=== PATIENT | female | born 1960 | race Caucasian/White ===

== ENCOUNTER 2018-07-28 16:38 | Emergency (ER) | payer MEDICARE, SELFPAY ==
[2018-07-28 17:04] VITALS: BP 160/100; PULSE 65; RESP 18; TEMP 36.7; O2SAT 97
[2018-07-28 17:13] LABS: Absolute Basophil Count 0.04 k/cumm (0.0-0.2); Absolute Eosinophil Count 0.38 k/cumm (0.0-0.7); Absolute Lymphocyte Count 1.59 k/cumm (1.2-3.4); Absolute Monocyte Count 0.43 k/cumm (0.11-0.7); Absolute Neutrophil Count 2.55 k/cumm (1.2-6.7); Basophils % 0.8; Eosinophils % 7.6; HCT 44.2 % (36.0-46.0); HGB 14.7 g/dL (12.0-15.5); Lymphocytes % 31.9; Mean Corp. HGB Concentration 33.3 g/dL (32.0-36.0); Mean Corpuscular Hemoglobin 28.5 pg (27.0-33.0); Mean Corpuscular Volume 85.8 fL (80-95); Mean Platelet Volume 10.5 fL (8.0-11.0); Monocytes % 8.6; Neutrophils % 51.1; Platelet Count 215 x1000/uL (130-400); RBC 5.15 m/cumm (4.00-5.20); RBC Distribution Width 13.3 % (11.7-14.6); White Blood Cell Count 4.99 k/cumm (4.4-10.8)
[2018-07-28 17:36] LABS: ALT 29 U/L (12-78); AST 14 U/L (15-37); Albumin 3.8 g/dL (3.4-5.0); Alkaline Phosphatase 122 U/L (46-116); Anion Gap 8.5 mmol/L (3-11); BUN 16 mg/dL (7-18); Bilirubin, Direct 0.09 mg/dL (0.00-0.20); Bilirubin, Total 0.4 mg/dL (0.2-1.0); CO2 26.5 mmol/L (21.0-32.0); CREATININE 0.67 mg/dL (0.55-1.02); Calcium 9.5 mg/dL (8.5-10.1); Chloride 106 mmol/L (98-107); Glucose 89 mg/dL (70-100); Lipase 135 U/L (73-393); Potassium 3.9 mmol/L (3.5-5.1); Sodium 141 mmol/L (136-145); Total Protein 7.7 g/dL (6.4-8.2)
[2018-07-28 17:37] LABS: Troponin I < 0.02 ng/mL (0.00-0.06)
--- NOTE | 2018-07-28 18:36 | DI.RAD_ITS ---
SYMPTOMS/DIAGNOSIS: S/P FALL, ? ACUTE PELVIC FRACTURE, ? ACUTE LEFT RIB FRACTURE, ? ACUTE LEFT SHOULDER FRACTURE PELVIS: A single AP view of the pelvis was obtained and shows no fracture. Please note that a single AP view is not adequate to exclude fracture. In particular, the sacrum was not well evaluated. LEFT SHOULDER: Four views were obtained. There is deformity of the distal clavicle, which may represent an old injury or resection. No evidence of acute fracture or dislocation. CHEST AND LEFT RIBS: PA and lateral views of the chest and four additional views of the ribs were obtained. The heart is at the upper limits of normal in size. There is an upper thoracic scoliosis. The lungs are grossly clear and well expanded. No pleural effusion, pneumothorax or hemothorax identified. Question L2 vertebral body fracture, probably old. No acute rib fracture seen.
--- NOTE | 2018-07-28 18:36 | DI.CT_ITS ---
SYMPTOMS/DIAGNOSIS: LEFT HEAD CONTUSION, INJURY TO LEFT SIDE OF HEAD S/P FALL, ? ACUTE INTRACRANIAL ABNORMALITY VERSUS FRACTURE CERVICAL SPINE CT: CT examination of the cervical spine was performed utilizing multislice acquisition and multiplanar reconstruction. Images obtained through the lung apices are unremarkable. Tracheolaryngeal structures appear intact. No cervical mass or adenopathy seen. No evidence of acute fracture. Moderate degenerative changes are noted, particularly involving the mid cervical region with marked disc space loss of height at C4-5 and C5-6 consistent with disc degeneration. No evidence of facet dislocation or acute fracture. CONCLUSION: No evidence of acute cervical fracture. CRANIAL CT: Noncontrast cranial CT was performed. There is moderate generalized cerebral atrophy, unusual in this age group. There are areas of bilateral decreased attenuation in periventricular white matter, consistent with microvascular ischemic changes. There is a presumed old mid pontine infarct. No evidence of acute intracranial hemorrhage, mass effect or midline shift. Bilateral lacunar infarcts noted. Probable right cerebellar infarct noted. No evidence of calvarial fracture. Paranasal sinuses show mucoperiosteal thickening, but no evidence of hemorrhage. Mastoid air cells are clear and temporal bone structures appear intact. Orbital structures appear intact. CONCLUSION: No evidence of acute intracranial injury.
--- NOTE | 2018-07-28 18:40 | W.ED.GENAD ---
Discharge Plan Disposition Patient Disposition: HOME Condition: Stable Discharge Details Chief Complaint: Chest Pain Clinical Impression: Closed head injury, Contusion of chest, Contusion of left shoulder, Medication refill Primary Care Provider: Lucian Carter ED Provider: Brianne Babcock Home Meds and New Rx's Prescriptions: New atorvastatin 10 mg tablet 10 mg PO DAILY Qty: 30 RF: 0 bupropion HCl 100 mg tablet sustained-release 12 hr 100 mg PO BID Qty: 60 RF: 0 metoprolol succinate 25 mg tablet extended release 24 hr 25 mg PO DAILY Qty: 30 RF: 0 lisinopril 40 mg tablet 40 mg PO DAILY Qty: 30 RF: 0 levothyroxine 50 mcg capsule 50 mcg PO DAILY Qty: 30 RF: 0 Discharge Instructions Instructions: Head Injury (ED), Contusion in Adults (ED) Additional Instructions: Take your regular medications as directed. You should receive a call from care management regarding a follow-up appointment with a primary care doctor. Return to the emergency department any worsening or new concerning symptoms. 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 She has a history of chronic left arm and leg weakness status post stroke 1.5 years ago. She uses a walker for ambulation. Denies LOC or vomiting. History obtained through video game designer with patient and . Patient recently moved from [place] and does not have any of her medications for the past 2 months including lisinopril, Synthroid, Torvistatin, Metoprolol and has been unable to obtain a PCP for patient. Blood pressure hypertensive, remainder vitals within normal limits. Patient appears nontoxic and in no acute distress. She has a hematoma to the left parietal scalp. No C-spine/T-spine/L-spine tenderness. She is also complaining of left chest and shoulder pain but there is no evidence of trauma, tenderness or deformity. Considering patient's history and concern for obtaining full history, will obtain a CT head/C-spine, left rib chest x-ray, left shoulder x-ray and pelvis x-ray as well as labs including cardiac workup. They also admitted to urinary frequency so we will obtain a urinalysis. We will also give fluids and a dose of Tylenol for pain. EKG notes a rate of 63, sinus, no acute ST elevation or depression, QTC 428, QRS 106. CT head notes hematoma otherwise no acute findings. CT C-spine negative. 2100 --all x-rays reviewed and negative. Labs reviewed and negative. Normal white blood cell count. Urinalysis notes 3-5 WBCs with moderate epis consistent with contamination. We will discharge home with refill of patient's prescriptions and arrange for care management to make a follow-up appointment with a primary care doctor. Patient has been instructed to return to the ER with any concerns. HPI General Mode of arrival: ambulatory. Date/Time Provider Initiated Documentation: 07/28/18 16:40. Limitations to Documentation: no limitations. Information obtained by: patient. HPI Narrative: Patient is a 58-year-old female who presents with headache and left-sided chest pain after fall today. Patient is deaf and history is obtained through a video game designer through patient and with her and friend who are also deaf. Through the bilingual interpreter - able to determine that patient was walking in the bathroom when she fell and hit her head on the wall. She is normally off balance from a previous stroke 1-1/2 years ago. Denies any LOC or vomiting after head injury. She also hit her left side of her chest and left shoulder on the wall. She is complaining of left-sided chest and left shoulder pain. She denies any radiation of pain to back. She admits to some shortness of breath. She denies neck pain, back pain, leg pain, abdominal pain, fever, cough. She has been eating and drinking normally. Family also admits to urinary frequency. Patient also recently moved from [place] in May and has not had any of her medications and since then. states that he has been unable to find a doctor for her because of her history of stroke. Past medical history: Stroke, Cardiomegaly Surgical history: None Social history: Smokes tobacco, Denies alcohol or drugs Meds: Synthroid, Lisinopril, Simvastatin Allergies: None PCP: None Related Data Home Medications Medication Instructions Recorded Confirmed atorvastatin 10 mg PO DAILY #30 tab 07/28/18 bupropion HCl 100 mg PO BID #60 tab 07/28/18 levothyroxine 50 mcg PO DAILY #30 cap 07/28/18 lisinopril 40 mg PO DAILY #30 tab 07/28/18 metoprolol succinate 25 mg PO DAILY #30 tab 07/28/18 Previous Rx's Medication Instructions Recorded atorvastatin 10 mg PO DAILY #30 tab 07/28/18 bupropion HCl 100 mg PO BID #60 tab 07/28/18 levothyroxine 50 mcg PO DAILY #30 cap 07/28/18 lisinopril 40 mg PO DAILY #30 tab 07/28/18 metoprolol succinate 25 mg PO DAILY #30 tab 07/28/18 Allergies Allergy/AdvReac Type Severity Reaction Status Date / Time No Known Allergies Allergy Unverified 06/26/14 19:06 General Stated Complaint: Chest Pain DIANNA: 3 Review of Systems Review of Systems All systems reviewed & are unremarkable except as noted in HPI and below Constitutional Denies chills, Denies excessive sweating, Denies fatigue, Denies fever(s), Reports headache(s), Denies weakness and Denies weight loss Eyes Reports system reviewed and no additional complaints, except as docu and Denies blurry vision ENT Denies vertigo, Denies dizziness, Denies otalgia, Reports headache(s), Denies nasal congestion, Denies sore throat and Denies throat swelling Cardiovascular Reports chest pain, Denies syncope, Denies rapid heart rate and Denies dyspnea Respiratory Denies dyspnea Gastrointestinal Denies abdominal pain, Denies diarrhea and Denies vomiting Genitourinary Denies hematuria, Denies dysuria and Denies flank pain Musculoskeletal Denies back pain and Denies joint swelling Integumentary/Breasts Denies lesions and Denies rash Neurologic Denies behavioral changes, Denies confusion, Denies vertigo, Denies dizziness, Denies syncope, Reports headache(s) and Denies weakness Psychiatric Denies behavioral changes, Denies confusion and Denies depression Endocrine Denies excessive sweating and Denies fatigue Hematologic/Lymphatic Denies easy bruising and Denies lymphadenopathy Allergic/Immunologic Denies throat swelling [facility] Social History Smoking/Tobacco Use Status: Current every day Exam Const General: cooperative and no acute distress Orientation: alert and awake HENMT Head: hematoma left parietal (approximately 2x2cm) Ears: hearing grossly normal bilaterally, external ears normal and TM's normal bilaterally General nose exam: external nose normal Face and sinus: normal facial exam Mouth: oral mucosae normal Teeth and gingiva: dentition normal Throat: posterior oropharynx normal Eyes General: appearance normal, both eyes and all related structures Eyelids: eyelids normal Pupils: PERRL EOM: EOM intact bilaterally Neck Neck: normal visual inspection Lymphatic: no lymphadenopathy noted Chest Chest: normal inspection of the chest, normal palpation of entire chest wall and no tenderness Resp Effort & Inspection: normal respiratory effort and able to speak in complete sentences Auscultation: clear to auscultation bilaterally Cardio Rate: regular rate Rhythm: regular rhythm GI Inspection: normal to inspection Palpation: soft, not firm, no guarding, no hepatosplenomegaly, no masses and nontender Auscultation: normal bowel sounds Back/Spine/Pelvis Back: no CVA tenderness Cervical Spine: No cervical spinal tenderness Thoracic/Lumbar Spine: No thoracic spinal tenderness and No lumbar spinal tenderness Pelvis: no pain with anterior-posterior compression Skin General skin exam: no rashes or lesions noted Neuro General: alert and awake Cognition: normal cognition Speech: other (deaf, does not speak ) Gait: gait assisted Method: walker (due to chronic L arm and leg weakness s/p cva) Motor: strength 5/5 throughout Extrem General: normal to inspection, full ROM and normal capillary refill Psych Appearance: grossly normal Mental Status: mental status grossly normal Speech and Movement: mute Affect: normal affect Thought Process: normal Course Vital Signs Temperature 98.0 F 07/28/18 17:04 Pulse 65 07/28/18 17:04 Respiratory Rate 18 07/28/18 17:04 Blood Pressure 160/100 H 07/28/18 17:04 Pulse Oximetry 97 07/28/18 17:04 Temperature 98.0 F 07/28/18 17:04 Temperature Source Temporal Artery Scan 07/28/18 17:04 Pulse 65 07/28/18 17:04 Respiratory Rate 18 07/28/18 17:04 Respiratory Effort Non-Labored 07/28/18 17:06 Blood Pressure 160/100 H 07/28/18 17:04 Blood Pressure Position Supine 07/28/18 17:04 Pulse Oximetry 97 07/28/18 17:04 Lab/Test Results Lab/Test Results: Laboratory Tests Range/Units 07/28/18 07/28/18 17:03 17:03 WBC (4.4-10.8) k/cumm 4.99 RBC (4.00-5.20) m/cumm 5.15 Hgb (12.0-15.5) g/dL 14.7 Hct (36.0-46.0) % 44.2 MCV (80-95) fL 85.8 MCH (27.0-33.0) pg 28.5 MCHC (32.0-36.0) g/dL 33.3 RDW (11.7-14.6) % 13.3 Plt Count (130-400) x1000/uL 215 MPV (8.0-11.0) fL 10.5 Immature Gran % 0.0 Neutrophils % 51.1 Lymphocytes % 31.9 Monocytes % 8.6 Eosinophils % 7.6 Basophils % 0.8 Absolute Neutrophils (1.2-6.7) k/cumm 2.55 Absolute Lymphocytes (1.2-3.4) k/cumm 1.59 Absolute Monocytes (0.11-0.7) k/cumm 0.43 Absolute Eosinophils (0.0-0.7) k/cumm 0.38 Absolute Basophils (0.0-0.2) k/cumm 0.04 Sodium (136-145) mmol/L 141 Potassium (3.5-5.1) mmol/L 3.9 Chloride (98-107) mmol/L 106 Carbon Dioxide (21.0-32.0) mmol/L 26.5 Anion Gap (3-11) mmol/L 8.5 BUN (7-18) mg/dL 16 Creatinine (0.55-1.02) mg/dL 0.67 Estimated GFR/1.73 m2 (mL/min/1.73m2) >= 60.00 Glucose (70-100) mg/dL 89 Calcium (8.5-10.1) mg/dL 9.5 Magnesium (1.8-2.4) mg/dL 2.0 Total Bilirubin (0.2-1.0) mg/dL 0.4 Conjugated Bilirubin (0.00-0.20) mg/dL 0.09 AST (15-37) U/L 14 L ALT (12-78) U/L 29 Alkaline Phosphatase (46-116) U/L 122 H Troponin I (0.00-0.06) ng/mL < 0.02 Total Protein (6.4-8.2) g/dL 7.7 Albumin (3.4-5.0) g/dL 3.8 Lipase (73-393) U/L 135
[2018-07-28] MEDS: Acetaminophen 325 MG TAB 650 MG PO (18:59)
[2018-07-28] MEDS: Normal Saline 1,000 ML 1000 ML IV (18:59)
--- NOTE | 2018-07-28 19:45 | DI.VRAD_ITS ---
EXAM: CT Head Without Intravenous Contrast EXAM DATE/TIME: 07/28/2018 6:39 PM CLINICAL HISTORY: 58 years old, female; Injury or trauma; Fall; Initial encounter; Blunt trauma (contusions or hematomas); Patient HX: S/P fall with contusion l side of head TECHNIQUE: Axial computed tomography images of the head/brain without intravenous contrast. Coronal and sagittal reformatted images were created and reviewed. COMPARISON: CT HEAD WITH/WITHOUT CONTRAST 12/05/2013 1:00 PM FINDINGS: Brain: There are moderate to marked areas of periventricular hypodensity consistent with chronic microvascular ischemic change. There is a small lacunar infarct in the right cerebellum, unchanged. Ventricles: There is mild, diffuse involutional change with mild associated ventriculomegaly. Bones/joints: Normal. No acute fracture. Sinuses: There is mild ethmoid and frontal sinus mucoperiosteal thickening. Mastoid air cells: Normal as visualized. No mastoid effusion. Soft tissues: There is a left parietal region soft tissue scalp hematoma. IMPRESSION: 1. There are moderate to marked areas of periventricular hypodensity consistent with chronic microvascular ischemic change. 2. There is a left parietal region soft tissue scalp hematoma. No evidence of acute intracranial trauma. EXAM: CT Cervical Spine Without Intravenous Contrast EXAM DATE/TIME: 07/28/2018 6:39 PM CLINICAL HISTORY: 58 years old, female; Injury or trauma; Fall; Initial encounter; Blunt trauma (contusions or hematomas); Patient HX: S/P fall with contusion l side of head TECHNIQUE: Axial computed tomography images of the cervical spine without intravenous contrast. Coronal and sagittal reformatted images were created and reviewed. COMPARISON: CT HEAD WITH/WITHOUT CONTRAST 12/05/2013 1:00 PM FINDINGS: Vertebrae: The there is mild dextroscoliosis of the lower cervical spine. Discs/Spinal canal/Neural foramina: There is moderate disc narrowing at C4-5 and C5-6, with anterior and posterior osteophytes. Soft tissues: Unremarkable. Lungs: Normal. IMPRESSION: Cervical degenerative changes and scoliosis as detailed above. No fracture, dislocation or other acute traumatic injury is seen. Dictated and Authenticated by: Keenan Daniels MD. Ordering:ELISA CARRANZA MD
--- NOTE | 2018-07-28 20:47 | DI.VRAD_ITS ---
EXAM: XR Pelvis, 1 or 2 Views CLINICAL HISTORY: 58 years old, female; Injury or trauma; Fall; Initial encounter; Blunt trauma (contusions or hematomas); Left; Hip; Patient HX: S/P fall; Additional info: R/O fracture TECHNIQUE: Frontal view of the pelvis. COMPARISON: No relevant prior studies available. FINDINGS: Bones/joints: No displaced fractures. Assessment of the sacrum is limited by overlying gas and stool. No dislocation. Soft tissues: Overlying leads. IMPRESSION: No displaced fractures. Difficult assessment of the sacrum. Dictated and Authenticated by: Sara Ramires MD. Ordering:ELISA CARRANZA MD
--- NOTE | 2018-07-28 20:49 | DI.VRAD_ITS ---
EXAM: XR Left Ribs, 2 Views CLINICAL HISTORY: 58 years old, female; Injury or trauma; Fall; Initial encounter; Blunt trauma (contusions or hematomas); Rib area, left side; Patient HX: S/P fall; Additional info: R/O fracture TECHNIQUE: Frontal and oblique views of the left ribs. COMPARISON: No relevant prior studies available. FINDINGS: Lungs: Unremarkable as visualized. No consolidation. Pleural space: No focal pathology. No pneumothorax. Bones/joints: Mild loss of height, superior L2 endplate, not optimally assessed on this study. Age-indeterminate. Focal levoscoliosis, upper thoracic spine. Mild ostial lysis of the distal left clavicle, probably related to prior trauma. No acute fracture. IMPRESSION: 1. No acute rib fractures. 2. Mild loss of height, superior L2 endplate, not optimally assessed on this study. Age-indeterminate. EXAM: XR Chest, 2 Views CLINICAL HISTORY: 58 years old, female; Injury or trauma; Fall; Initial encounter; Blunt trauma (contusions or hematomas); Rib area, left side; Patient HX: S/P fall; Additional info: R/O fracture TECHNIQUE: Frontal and lateral views of the chest. COMPARISON: No relevant prior studies available. FINDINGS: Lungs: No focal pathology. No consolidation. Pleural space: No focal pathology. No pneumothorax. Heart: Mild cardiomegaly without significant volume overload. Mediastinum: Unremarkable. Bones/joints: Mild loss of height in an upper lumbar vertebral body, probably L2, not well assessed on these films, age-indeterminate. Focal levoscoliosis, upper thoracic spine. IMPRESSION: 1. Mild cardiomegaly without significant volume overload. No airspace consolidation. 2. Mild loss of height in an upper lumbar vertebral body, probably L2, not well assessed on these films, age-indeterminate. Dictated and Authenticated by: Sara Ramires MD. Ordering:ELISA CARRANZA MD
--- NOTE | 2018-07-28 20:50 | DI.VRAD_ITS ---
EXAM: XR Left Shoulder Complete, 2 or More Views CLINICAL HISTORY: 58 years old, female; Injury or trauma; Fall; Initial encounter; Blunt trauma (contusions or hematomas; Shoulder; Left; Patient HX: S/P fall; Additional info: R/O fracture TECHNIQUE: Two or more views of the left shoulder. COMPARISON: No relevant prior studies available. FINDINGS: Bones/joints: Mild ostial lysis of the distal left clavicle, probably related to prior trauma. No acute fracture. No dislocation. Soft tissues: Unremarkable. IMPRESSION: 1. No acute bony pathology. 2. Mild ostial lysis of the distal left clavicle, probably related to prior trauma. Dictated and Authenticated by: Sara Ramires MD. Ordering:ELISA CARRANZA MD
[2018-07-28 20:56] LABS: Bilirubin Negative (Negative); Blood Negative (Negative); Clarity Clear; Glucose Negative (Negative); Ketones 15 mg/dL (Negative); Leukocyte Esterase Trace (Negative); Nitrite Negative (Negative); Specific Gravity >= 1.030 (1.005-1.025); Urobilinogen 0.2 EU/dL (Up TO 0.2); pH 5.5 (5-8)
[2018-07-28 20:58] LABS: Bacteria Few HPF (Negative); C & S Indicated? No/Sq. Contamination; Casts Negative LPF (Negative); Crystals Negative HPF (Negative); Epithelial Cells Moderate HPF (Negative); Mucus Negative (Negative); RBC Negative (0-2)
[2018-07-28 21:41] VITALS: BP 133/80; PULSE 80; RESP 18; TEMP 36.8; O2SAT 99
--- NOTE | 2018-07-30 10:49 | PDOC.ERCMPRO ---
Care Management Progress Note 07/30-Dr. Babcock requested assistance with a PCP (Dr. Carter) f/u in 1-2 weeks for h/o of stroke, management of chronic medical problems. Referral faxed to Dr. Carter's office this am.
== END 2018-07-28 21:45 | disposition home or self-care (01) ==
PROVIDERS: Emergency Provider Physician Assistant; PCP General Practice
DX: S09.90XA Unspecified injury of head, initial encounter (principal); S40.012A Contusion of left shoulder, initial encounter; S00.03XA Contusion of scalp, initial encounter; S20.212A Contusion of left front wall of thorax, initial encounter; W01.198A Fall on same level from slipping, tripping and stumbling with subsequent striking against other object, initial encounter; I69.354 Hemiplegia and hemiparesis following cerebral infarction affecting left non-dominant side; H91.3 Deaf nonspeaking, not elsewhere classified; I10 Essential (primary) hypertension; Z76.0 Encounter for issue of repeat prescription; R35.0 Frequency of micturition
CPT/HCPCS: 36415; 80053; 80076; 83690; 93005; 96360; 99285; 70450; 71046; 71100; 72125; 72170; 73030; 81003; 81015; 83735; 84484; 85025; 93010

== ENCOUNTER 2018-08-25 22:29 | Inpatient (IN) | payer MEDICARE, SELFPAY ==
[2018-08-25 22:32] VITALS: BP 159/113; PULSE 89; RESP 16; TEMP 36.8; O2SAT 98
--- NOTE | 2018-08-25 22:48 | DI.RAD_ITS ---
SYMPTOMS/DIAGNOSIS: LEFT KNEE PAIN LEFT KNEE: Three views. No bone or joint abnormality is identified. IMPRESSION: No acute abnormality.
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
[2018-08-25 22:55] LABS: Bilirubin Moderate (Negative); Blood Moderate (Negative); Clarity Cloudy; Glucose Negative (Negative); Ketones 15 mg/dL (Negative); Leukocyte Esterase Small (Negative); Nitrite Negative (Negative); Specific Gravity >= 1.030 (1.005-1.025); pH 5.5 (5-8)
[2018-08-25 23:03] LABS: Abs Immature Grans 0.03 k/cumm (0.0-0.09); Absolute Basophil Count 0.02 k/cumm (0.0-0.2); Absolute Lymphocyte Count 0.66 k/cumm (1.2-3.4); Basophils % 0.2; HCT 42.5 % (36.0-46.0); HGB 14.5 g/dL (12.0-15.5); Immature Grans % 0.2; Lymphocytes % 5.3; Mean Corp. HGB Concentration 34.1 g/dL (32.0-36.0); Mean Corpuscular Hemoglobin 28.5 pg (27.0-33.0); Mean Corpuscular Volume 83.7 fL (80-95); Mean Platelet Volume 10.3 fL (8.0-11.0); Monocytes % 5.2; Neutrophils % 89.1; Platelet Count 203 x1000/uL (130-400); RBC 5.08 m/cumm (4.00-5.20); RBC Distribution Width 13.6 % (11.7-14.6); White Blood Cell Count 12.39 k/cumm (4.4-10.8)
[2018-08-25 23:03] LABS: WBC >50 HPF (0-5)
[2018-08-25 23:04] LABS: Bacteria Many HPF (Negative); C & S Indicated? No/Sq. Contamination; Casts Negative LPF (Negative); Crystals Negative HPF (Negative); Epithelial Cells Many HPF (Negative); Mucus Negative (Negative)
[2018-08-25 23:05] LABS: Absolute Monocyte Count 0.64 k/cumm (0.11-0.7); Absolute Neutrophil Count 11.04 k/cumm (1.2-6.7)
[2018-08-25 23:10] LABS: Anion Gap 11.2 mmol/L (3-11); BUN 18 mg/dL (7-18); CO2 27.8 mmol/L (21.0-32.0); CREATININE 0.92 mg/dL (0.55-1.02); Calcium 10.3 mg/dL (8.5-10.1); Chloride 101 mmol/L (98-107); Glucose 105 mg/dL (70-100); Potassium 3.6 mmol/L (3.5-5.1); Sodium 140 mmol/L (136-145)
--- NOTE | 2018-08-25 23:26 | DI.VRAD_ITS ---
EXAM: XR Left Knee, 3 Views EXAM DATE/TIME: 08/25/2018 10:50 PM CLINICAL HISTORY: 58 years old, female; Pain; Knee; Left; Patient HX: Left knee pain. TECHNIQUE: XR Left knee 3 views. COMPARISON: No relevant prior studies available. FINDINGS: Bones/joints: Normal. Soft tissues: Normal. IMPRESSION: No acute findings. Dictated and Authenticated by: Dayday Albarado MD. Ordering:TATUM GREY MD
[2018-08-26] VITALS (16 sets, daily range): BP systolic 92–222; BP diastolic 60–145; PULSE 58–107; RESP 16–20; TEMP 36.4–37.9; O2SAT 94–97
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
[2018-08-26] MEDS: Normal Saline 1,000 ML 125 ML IV ×2 (01:00→18:20)
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
[2018-08-26] MEDS: Metoprolol 5 MG/5 ML VIAL IVP ×3 (06:05→06:47)
[2018-08-26] MEDS: Normal Saline Flush 10 ML SYR IVP ×3 (06:07→14:19)
[2018-08-26] MEDS: Enoxaparin 40 MG/0.4 ML SYR SC (06:15)
[2018-08-26] MEDS: Metoprolol 25 MG TAB PO (06:16)
[2018-08-26] MEDS: Levothyroxine 50 MCG TAB PO (06:16)
[2018-08-26 06:58] LABS: HCT 38.7 % (36.0-46.0); HGB 13.2 g/dL (12.0-15.5); Mean Corp. HGB Concentration 34.1 g/dL (32.0-36.0); Mean Corpuscular Hemoglobin 28.8 pg (27.0-33.0); Mean Corpuscular Volume 84.5 fL (80-95); Mean Platelet Volume 10.4 fL (8.0-11.0); Platelet Count 203 x1000/uL (130-400); RBC 4.58 m/cumm (4.00-5.20); RBC Distribution Width 13.5 % (11.7-14.6); White Blood Cell Count 12.74 k/cumm (4.4-10.8)
[2018-08-26 07:16] LABS: ALT 46 U/L (12-78); AST 48 U/L (15-37); Albumin 3.3 g/dL (3.4-5.0); Alkaline Phosphatase 101 U/L (46-116); Anion Gap 13.2 mmol/L (3-11); BUN 14 mg/dL (7-18); Bilirubin, Total 0.6 mg/dL (0.2-1.0); CO2 22.8 mmol/L (21.0-32.0); CREATININE 0.78 mg/dL (0.55-1.02); Calcium 9.2 mg/dL (8.5-10.1); Chloride 101 mmol/L (98-107); Glucose 95 mg/dL (70-100); Potassium 3.3 mmol/L (3.5-5.1); Sodium 137 mmol/L (136-145); TSH (W/Ref FT4) 2.27 uIU/mL (0.358-3.74)
--- NOTE | 2018-08-26 07:45 | PHARADMIT ---
Admission Pharmacy Clinical Review Weakness, UTI, Uncontrolled HTN Code Status Full Code Current Weight Wgt- 46 kg Renally Cleared and Narrow Therapeutic Index Meds CrCl~ 55.6mL/min Meds-OK QTc Value / Action Taken QTc-428 na BP Control, Fever BP-185/106 Tmax- 37.7C Electrolytes reviewed Na- 137 K+3.3 DVT Prophylaxis Lovenox Opiate Usage / Scheduled Bowel Regimen Ordered No Yes Plt/SCr for Heparin / Enoxaparin Plts- 203 SCr- 0.78 INR for Warfarin na H/H stable, WBC/Bands H&H- 13.2/38.7 WBC- 12.74 Antibiotic appropriateness Rocephin, Cultures and Sensitivities Urine-pending Surgical ABX d/c within 24 hr na DM control / Insulin Dosing BG- 95 Heart Failure (Check EF%) (KATY's, B-Block, Diuretics) Lisinopril, Metoprolol, IV to PO Switch No Home Meds Reviewed Yes Home Meds Not Ordered Ordered Comments
[2018-08-26] MEDS: Lisinopril 20 MG TAB 40 MG PO (08:29)
[2018-08-26] MEDS: Atorvastatin 10 MG TAB PO (08:30)
[2018-08-26] MEDS: buPROPion-CR 100 MG TABCR PO ×2 (08:30→19:52)
--- NOTE | 2018-08-26 08:33 | PHARADMIT ---
Addendum entered by Joaquin Bradford III 08/30/18 12:22: ADMITTED TO SWING BED Original Note: Addendum entered by Elizabeth Deleon 08/29/18 14:49: Pharmacy Note Subjective pt is not taking whole pills Objective bs 169/105, UC no growth 48 hours Assessment Starting mirabegron today for possible urinary spasm and frequent urination, changed KCL PO to caps per nursing request. Nurse will open capsule and place in applesauce Plan expect phenazopyridine to be stopped soon Original Note: Addendum entered by Brea Fuentes 08/28/18 16:05: Pharmacy Note Subjective pt. was complaining of pain in femur per morning report Objective BP-177/106 HR-58 other VS okay K+3.2 Assessment hydralazine ordered 10 mg Q4H PRN for elevated BP (parameters in order) femur x-ray done today Plan CM is trying to figure out placement or possible swing until the pt can go back to [place] with family Original Note: Addendum entered by Brea Fuentes 08/27/18 12:33: Pharmacy Note Subjective BP 220/116 this morning when pt moved per morning report Objective BP-176/102 HR-54 other VS okay WBC-8.78(down) Assessment hydrochlorthiazide dose increased from 12.5 to 25 mg daily phenazopyridine started 200 mg TID ceftriaxone continues Plan continue to watch VS, labs and for med changes Original Note: Admission Pharmacy Clinical Review Weakness, UTI, Uncontrolled Hypertension Code Status Full Code Current Weight Wgt- 46 kg Renally Cleared and Narrow Therapeutic Index Meds CrCl~ 55.6 mL/min Meds- OK QTc Value / Action Taken QTc-428 BP Control, Fever BP- 185/106 Tmax- 37.7C Electrolytes reviewed Na-137 K+3.3 DVT Prophylaxis Lovenox 40mg Opiate Usage / Scheduled Bowel Regimen Ordered No Yes Plt/SCr for Heparin / Enoxaparin Plts-203 SCr-0.78 INR for Warfarin NA H/H stable, WBC/Bands H&H- 13.2/38.7 WBC- 12.74 Antibiotic appropriateness Rocephin Cultures and Sensitivities Urine-pending Surgical ABX d/c within 24 hr na DM control / Insulin Dosing BG- 95 Heart Failure (Check EF%) (KATY's, B-Block, Diuretics) Lisinopril, Toprol-XL IV to PO Switch No Home Meds Reviewed Yes Home Meds Not Ordered Ordered Comments
[2018-08-26] MEDS: Acetaminophen 500 MG TAB 1000 MG PO ×2 (09:55→23:11)
[2018-08-26] MEDS: Ketorolac 15 MG/ML VIAL IVP (14:18)
--- NOTE | 2018-08-26 15:30 | DI.RAD_ITS ---
SYMPTOM/DIAGNOSIS: NEW POINT TENDERNESS OVER SACRUM SACRUM: Frontal and lateral views. No acute fracture or dislocation is seen. The sacroiliac joints appear intact. Soft tissues are unremarkable. IMPRESSION: No acute abnormality.
--- NOTE | 2018-08-26 15:42 | DI.VRAD_ITS ---
EXAM: XR Sacrum and Coccyx, 2 or More Views EXAM DATE/TIME: 08/26/2018 2:02 PM CLINICAL HISTORY: 58 years old, female; Pain; Other: New point tenderness over sacrum TECHNIQUE: XR XR of the sacrum and coccyx, 2 or more views. COMPARISON: SC XR pelvis AP 07/28/2018 7:12 PM FINDINGS: Mild degenerative disc disease of the lower lumbar spine. No acute displaced fracture. Soft tissues unremarkable. IMPRESSION: No definite evidence of acute bony injury. Dictated and Authenticated by: Kt Landaverde MD. Ordering:DENICE SKAGGS MD
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
[2018-08-26] MEDS: Metoprolol 50 MG TAB PO (19:52)
[2018-08-27] VITALS (9 sets, daily range): BP systolic 145–220; BP diastolic 88–116; PULSE 54–67; RESP 17–20; TEMP 36.7–37.4; O2SAT 95–98
[2018-08-27] MEDS: Normal Saline 1,000 ML 125 ML IV (02:38)
[2018-08-27] MEDS: LORazepam 0.5 MG TAB PO ×3 (03:04→20:00)
[2018-08-27] MEDS: Acetaminophen 500 MG TAB 1000 MG PO ×3 (03:05→22:38)
[2018-08-27] MEDS: Levothyroxine 50 MCG TAB PO (05:11)
[2018-08-27] MEDS: Enoxaparin 40 MG/0.4 ML SYR SC (05:11)
[2018-08-27 06:52] LABS: HCT 37.3 % (36.0-46.0); HGB 12.6 g/dL (12.0-15.5); Mean Corp. HGB Concentration 33.8 g/dL (32.0-36.0); Mean Corpuscular Hemoglobin 28.8 pg (27.0-33.0); Mean Corpuscular Volume 85.2 fL (80-95); Mean Platelet Volume 10.8 fL (8.0-11.0); Platelet Count 183 x1000/uL (130-400); RBC 4.38 m/cumm (4.00-5.20); RBC Distribution Width 13.5 % (11.7-14.6); White Blood Cell Count 8.78 k/cumm (4.4-10.8)
[2018-08-27] MEDS: Lisinopril 20 MG TAB 40 MG PO (08:17)
[2018-08-27] MEDS: Docusate Sodium 100 MG CAP PO ×2 (08:17→16:00)
[2018-08-27] MEDS: Metoprolol 50 MG TAB PO ×2 (08:17→20:16)
[2018-08-27] MEDS: Atorvastatin 10 MG TAB PO (08:17)
[2018-08-27] MEDS: Milk of Magnesia 30 ML CUP PO (08:17)
[2018-08-27] MEDS: buPROPion-CR 100 MG TABCR PO ×2 (08:19→20:15)
[2018-08-27] MEDS: Normal Saline Flush 10 ML SYR IVP ×2 (09:47→22:05)
[2018-08-27] MEDS: Phenazopyridine 200 MG TAB (12:02)
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
[2018-08-27] MEDS: Phenazopyridine 200 MG TAB PO (20:16)
[2018-08-28] VITALS (7 sets, daily range): BP systolic 167–189; BP diastolic 102–118; PULSE 55–64; RESP 17–20; TEMP 36.4–37.1; O2SAT 92–97
--- NOTE | 2018-08-28 01:58 | NUR.NOTE ---
last night pt voiding every 10 minutes. tonight pt has been ringing every 20 minutes to void. pt did not sleep last night. pt not sleeping tonight. pt stated I am tired of peeing all the time. this nurse told the pt that we could put a Luna in. pt agreed.
[2018-08-28] MEDS: Acetaminophen 500 MG TAB 1000 MG PO ×3 (03:23→14:52)
[2018-08-28] MEDS: LORazepam 0.5 MG TAB PO ×3 (03:24→14:51)
[2018-08-28] MEDS: Enoxaparin 40 MG/0.4 ML SYR SC (06:37)
[2018-08-28] MEDS: Levothyroxine 50 MCG TAB PO (06:37)
[2018-08-28] MEDS: buPROPion-CR 100 MG TABCR PO ×2 (08:31→20:10)
[2018-08-28] MEDS: Lisinopril 20 MG TAB 40 MG PO (08:31)
[2018-08-28] MEDS: Hydrochlorothiazide 25 MG TAB PO (08:31)
[2018-08-28] MEDS: Phenazopyridine 200 MG TAB PO ×3 (08:31→20:10)
[2018-08-28] MEDS: Metoprolol 50 MG TAB PO ×2 (08:31→20:10)
[2018-08-28] MEDS: Atorvastatin 10 MG TAB PO (08:31)
[2018-08-28 11:31] LABS: Anion Gap 8.6 mmol/L (3-11); BUN 8 mg/dL (7-18); CO2 27.4 mmol/L (21.0-32.0); CREATININE 0.93 mg/dL (0.55-1.02); Calcium 9.4 mg/dL (8.5-10.1); Chloride 101 mmol/L (98-107); Glucose 111 mg/dL (70-100); Potassium 3.2 mmol/L (3.5-5.1); Sodium 137 mmol/L (136-145)
[2018-08-28 13:00] LABS: Chlamydia Result Negative; GC Result Negative; Specimen Description URINE
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
--- NOTE | 2018-08-28 14:16 | DI.RAD_ITS ---
SYMPTOMS/DIAGNOSIS: PAIN AND BRUISING, LIMITED RANGE OF MOTION LEFT FEMUR: Four views. No bone or joint abnormality is identified. No radiopaque foreign bodies are seen in the soft tissues. IMPRESSION: No acute abnormality.
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
[2018-08-28] MEDS: Potassium Chloride 20 MEQ TABCR 40 MEQ PO (20:10)
[2018-08-29] MEDS: Acetaminophen 500 MG TAB 1000 MG PO ×3 (00:04→16:10)
[2018-08-29 05:20] VITALS: BP 166/93; PULSE 61; RESP 19; TEMP 36.6; O2SAT 94
[2018-08-29] MEDS: Levothyroxine 50 MCG TAB PO (06:46)
[2018-08-29] MEDS: Enoxaparin 40 MG/0.4 ML SYR SC (06:46)
[2018-08-29 07:05] VITALS: BP 174/119; PULSE 62; RESP 18; TEMP 36.4; O2SAT 93
[2018-08-29 07:08] LABS: BUN 13 mg/dL (7-18); CREATININE 0.78 mg/dL (0.55-1.02); Calcium 9.8 mg/dL (8.5-10.1); Chloride 100 mmol/L (98-107); Glucose 110 mg/dL (70-100); Potassium 3.4 mmol/L (3.5-5.1); Sodium 135 mmol/L (136-145)
[2018-08-29] MEDS: Potassium Chloride 10 MEQ CAPCR 40 MEQ PO ×2 (08:12→19:44)
[2018-08-29] MEDS: Atorvastatin 10 MG TAB PO (08:13)
[2018-08-29] MEDS: Metoprolol 50 MG TAB PO ×2 (08:13→19:44)
[2018-08-29] MEDS: Phenazopyridine 200 MG TAB PO ×2 (08:13→17:27)
[2018-08-29] MEDS: LORazepam 0.5 MG TAB PO (08:13)
[2018-08-29] MEDS: Lisinopril 20 MG TAB 40 MG PO (08:13)
[2018-08-29] MEDS: buPROPion-CR 100 MG TABCR PO ×2 (08:13→19:44)
[2018-08-29] MEDS: amLODIPine 5 MG TAB PO (08:13)
[2018-08-29] MEDS: Mirabegron 50 MG TABCR PO (10:19)
[2018-08-29] MEDS: Magnesium Oxide 400 MG TAB PO (10:19)
[2018-08-29] MEDS: Omeprazole 20 MG CAPCR PO (10:19)
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
--- NOTE | 2018-08-29 12:03 | PDOC.CMPRO ---
- If Service Date Differs Date of service: 08/29/18 Time of Service: 12:03 Care Management Progress Note S/O: SHANE met with patient at the bedside using the deaf talk translator interpreter line. Krystal was able to articulate that she wish to continue with the restraining order against her spouse and she was able to sign the forms to be submitted. Deaf advocate through [facility] will be at the hospital at 3:30 today to meet with Krystal and will assist in arranging supports to return her to [place] with her family. Krystal was able to report that she is having pain which appears to be in several locations including her left foot, right leg and vaginal area. She declines a gynecology consult for exam at this time via translator interpreter. She would like a nicotine inhaler which the primary nurse is requesting from the provider. Krystal blood pressure is elevated and medication are being adjusted. Krystal understands the reason she is admitted to the hospital and CM was able to provide education related to her current treatment. A: Krystal is a 58 year old female admitted with weakness, UTI and uncontrolled hypertension P:Krystal will meet advocate today from [facility] to complete the affidavit which will then be sent to the court to file emergency relief order. She will remain acute today as her medication for hypertension are being changed. Plan is to return Krystal back to her family in [place] with the assistance of Mara.
[2018-08-29 12:21] LABS: Magnesium 1.7 mg/dL (1.8-2.4)
[2018-08-29 12:24] LABS: Clarity Sl Cloudy; Specific Gravity 1.015 (1.005-1.025)
[2018-08-29 12:26] LABS: Bilirubin Color Interference (Negative); Blood Color Interference (Negative); Glucose Color Interference mg/dL (Negative); Ketones Color Interference mg/dL (Negative); Leukocyte Esterase Color Interference (Negative); Nitrite Color Interference (Negative); Urobilinogen Color Interference EU/dL (Up TO 0.2)
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
[2018-08-29 12:37] LABS: Epithelial Cells Many HPF (Negative); Other Cells Negative (Negative); RBC 20-50 (0-2)
[2018-08-29 12:38] LABS: Bacteria Few HPF (Negative); C & S Indicated? No/Sq. Contamination; Casts Negative LPF (Negative); Crystals Negative HPF (Negative); Mucus Negative (Negative)
[2018-08-29 14:22] VITALS: BP 169/105; PULSE 81
[2018-08-29 15:35] VITALS: BP 154/103; PULSE 59; RESP 18; TEMP 36.7; O2SAT 96
[2018-08-29] MEDS: Normal Saline Flush 10 ML SYR IVP ×3 (16:06→23:34)
[2018-08-29 19:14] VITALS: BP 143/99; PULSE 60; RESP 18; TEMP 36.8; O2SAT 95
[2018-08-29] MEDS: hydrALAZINE 20 MG/ML VIAL 10 MG IVP (23:35)
[2018-08-29 23:44] VITALS: BP 181/86; PULSE 50; RESP 19; TEMP 36.9; O2SAT 94
[2018-08-30 00:38] VITALS: BP 156/104; PULSE 66
[2018-08-30] MEDS: Acetaminophen 500 MG TAB 1000 MG PO ×2 (03:41→08:14)
[2018-08-30 03:49] VITALS: BP 161/93; PULSE 64; RESP 19; TEMP 37.3; O2SAT 94
[2018-08-30] MEDS: Enoxaparin 40 MG/0.4 ML SYR SC (05:37)
[2018-08-30] MEDS: Levothyroxine 50 MCG TAB PO (05:38)
[2018-08-30 07:10] VITALS: BP 168/90; PULSE 63; RESP 18; TEMP 36.4; O2SAT 92
[2018-08-30 07:18] LABS: HCT 44.8 % (36.0-46.0); HGB 14.7 g/dL (12.0-15.5); Mean Corp. HGB Concentration 32.8 g/dL (32.0-36.0); Mean Corpuscular Hemoglobin 28.1 pg (27.0-33.0); Mean Corpuscular Volume 85.5 fL (80-95); Platelet Count 282 x1000/uL (130-400); RBC 5.24 m/cumm (4.00-5.20); RBC Distribution Width 13.9 % (11.7-14.6)
[2018-08-30 07:20] LABS: Anion Gap 9.3 mmol/L (3-11); BUN 15 mg/dL (7-18); CO2 24.7 mmol/L (21.0-32.0); CREATININE 0.77 mg/dL (0.55-1.02); Calcium 10.1 mg/dL (8.5-10.1); Chloride 100 mmol/L (98-107); Glucose 101 mg/dL (70-100); Potassium 4.4 mmol/L (3.5-5.1); Sodium 134 mmol/L (136-145)
[2018-08-30] MEDS: Mylanta Suspension 30 ML CUP PO (08:09)
[2018-08-30] MEDS: LORazepam 0.5 MG TAB PO (08:11)
[2018-08-30] MEDS: amLODIPine 5 MG TAB 10 MG PO (08:12)
[2018-08-30] MEDS: Phenazopyridine 200 MG TAB PO (08:12)
[2018-08-30] MEDS: Omeprazole 20 MG CAPCR PO (08:12)
[2018-08-30] MEDS: Potassium Chloride 10 MEQ CAPCR 40 MEQ PO (08:13)
[2018-08-30] MEDS: Mirabegron 50 MG TABCR PO (08:13)
[2018-08-30] MEDS: buPROPion-CR 100 MG TABCR PO (08:13)
[2018-08-30] MEDS: Metoprolol 50 MG TAB PO (08:14)
[2018-08-30] MEDS: Atorvastatin 10 MG TAB PO (08:14)
[2018-08-30] MEDS: Docusate Sodium 100 MG CAP PO (08:14)
[2018-08-30] MEDS: Normal Saline Flush 10 ML SYR IVP (08:15)
[2018-08-30] MEDS: Lisinopril 20 MG TAB 40 MG PO (08:15)
[2018-08-30 08:20] VITALS: O2SAT 92
--- NOTE | 2018-08-30 10:14 | NUR.NOTE ---
Nursing Note: Patient reporting relief of chest d/c, SOB, and numbness and tingling post mylanta and ativan administration.
[2018-08-30 11:40] VITALS: BP 152/108; PULSE 68; RESP 20; TEMP 37.2; O2SAT 94
--- NOTE | 2018-08-30 12:19 | PDOC.CMPRO ---
- If Service Date Differs Date of service: 08/30/18 Time of Service: 12:19 Care Management Progress Note S/O: CM met with Krystal in her room she is sitting up in the chair. She continues to complain of generalized pain she reports the Tylenol is only helping a little. CM did review ongoing pain management plan with provider. CM is awaiting contact from [facility] and approval of restraining order. Plan is that [facility] will assist patient in returning to [place]. SHANE is currently working with [facility] agency to identify cost of the transfer. Consents where signed by Krystal today to communicate with community partners, with transportation cost, care and clothing for the patient to return to her family. Krystal is able to articulate she has a fear of flying however she is able to understand it would be the fastest mode of transportation for her. A: Krystal is a 58 year old female admitted with weakness, UTI and uncontrolled hypertension P:Krystal will remain acute today as her medication continue to be adjusted. She will transition to [facility] for PT and management of medications. Plan is to return Krystal back to her family in [place] with the assistance of [facility].
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
--- NOTE | 2018-08-30 12:59 | CMPROGNOTE_ITS ---
- If Service Date Differs Date of service: 08/30/18 Time of Service: 12:19 Care Management Progress Note S/O: CM met with Krystal in her room she is sitting up in the chair. She continues to complain of generalized pain she reports the Tylenol is only helping a little. CM did review ongoing pain management plan with provider. CM is awaiting contact from [facility] and approval of restraining order. Plan is that [facility] will assist patient in returning to [place]. SHANE is currently working with [facility] agency to identify cost of the transfer. Consents where signed by Krystal today to communicate with community partners, with transportation cost, care and clothing for the patient to return to her family. Krystal is able to articulate she has a fear of flying however she is able to understand it would be the fastest mode of transportation for her. A: Krystal is a 58 year old female admitted with weakness, UTI and uncontrolled hypertension P:Krystal will remain acute today as her medication continue to be adjusted. She will transition to [facility] for PT and management of medications. Plan is to return Krystal back to her family in [place] with the assistance of [facility].
== END 2018-08-30 13:06 | disposition swing bed (61) | DRG 948 ==
LOC: ER 08-26 00:47 → MS 08-26 01:05
PROVIDERS: Family Medicine; Nurse Practitioner; Admitting Provider Family Medicine; Emergency Provider Emergency Medicine; PCP General Practice; Visit Provider Internal Medicine
DX: R53.1 Weakness (principal); T76.11XA Adult physical abuse, suspected, initial encounter; I69.354 Hemiplegia and hemiparesis following cerebral infarction affecting left non-dominant side; Z68.1 Body mass index [BMI] 19.9 or less, adult; I10 Essential (primary) hypertension; E87.6 Hypokalemia; E83.42 Hypomagnesemia; M25.562 Pain in left knee; M79.652 Pain in left thigh; H91.93 Unspecified hearing loss, bilateral; Y07.01 Husband, perpetrator of maltreatment and neglect; F32.9 Major depressive disorder, single episode, unspecified; I69.322 Dysarthria following cerebral infarction; Z99.3 Dependence on wheelchair
CPT/HCPCS: 36415; 73552; 73562; 80048; 80053; 85027; 87491; 87591; 99220; 99232; 99239; 99285; 99305; J1650; 72220; 81003; 81015; 83735; 84443; 85025; 87086; 99284; G0378; J0360; J0696; J1885

== ENCOUNTER 2018-08-30 13:06 | Inpatient (IN) | payer MEDICARE, SELFPAY ==
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
[2018-08-30 16:03] VITALS: BP 132/87; PULSE 66; RESP 18; TEMP 36.4; O2SAT 95
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
[2018-08-30] MEDS: Milk of Magnesia 30 ML CUP PO (18:34)
[2018-08-30] MEDS: traMADol 50 MG TAB PO ×2 (18:34→23:36)
[2018-08-30 19:19] VITALS: BP 128/91; PULSE 76; RESP 18; TEMP 37; O2SAT 96
[2018-08-30] MEDS: buPROPion-CR 100 MG TABCR PO (19:22)
[2018-08-30] MEDS: Metoprolol 50 MG TAB PO (19:22)
[2018-08-30] MEDS: Acetaminophen 500 MG TAB 1000 MG PO (21:05)
[2018-08-30] MEDS: LORazepam 0.5 MG TAB PO (23:35)
[2018-08-30 23:53] VITALS: BP 121/80; PULSE 57; RESP 16; TEMP 37.4; O2SAT 95
[2018-08-31] MEDS: Acetaminophen 500 MG TAB 1000 MG PO (03:24)
[2018-08-31 04:02] VITALS: BP 168/98; PULSE 77; RESP 18; TEMP 35.7; O2SAT 95
[2018-08-31] MEDS: Enoxaparin 40 MG/0.4 ML SYR SC (05:11)
[2018-08-31] MEDS: Levothyroxine 50 MCG TAB PO (05:11)
[2018-08-31 07:20] VITALS: BP 158/92; PULSE 63; RESP 16; TEMP 36.4; O2SAT 95
[2018-08-31 07:28] LABS: Magnesium 2.2 mg/dL (1.8-2.4)
[2018-08-31] MEDS: buPROPion-CR 100 MG TABCR PO ×2 (08:58→21:27)
[2018-08-31] MEDS: Lisinopril 20 MG TAB 40 MG PO (08:58)
[2018-08-31] MEDS: Atorvastatin 10 MG TAB PO (08:58)
[2018-08-31] MEDS: Mirabegron 50 MG TABCR PO (08:58)
[2018-08-31] MEDS: Omeprazole 20 MG CAPCR PO (08:58)
[2018-08-31] MEDS: Metoprolol 50 MG TAB PO ×2 (08:59→21:27)
[2018-08-31] MEDS: amLODIPine 5 MG TAB 10 MG PO (09:24)
[2018-08-31] MEDS: Normal Saline Flush 10 ML SYR IVP (09:25)
[2018-08-31 11:05] VITALS: BP 159/94; PULSE 63; RESP 16; TEMP 36.4; O2SAT 98
--- NOTE | 2018-08-31 11:48 | CM.SWINGPC ---
- If Service Date Differs Date of service: 08/31/18 Time of Service: 11:48 Swingbed Plan of Care Plan of care: SWING BED PROGRAM ACTIVITIES/DISCHARGE PLAN OF CARE ACTIVITIES PLAN Date: 08/30/18 Identified Need: Individual activities Intervention/Plan: Activity cart, music therapy, reiki, pet therapy. Initials [facility] DISCHARGE PLAN Date: 08/30/18 Identified Need: PT/OT to be able to transfer with assisted device to and from wheelchair Return home with her family in [place] Intervention/Plan: PT and OT consults to eval and treat [facility] and community resources assistance in transpiration to [place]. Initials [facility]
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
--- NOTE | 2018-08-31 12:34 | PT.INTREAT ---
Date of service: 08/31/18 Time of Service: 12:34 PT Notes Inpatient Physical Therapy Treatment Note Date: 08/31/18 PRECAUTIONS: Fall SUBJECTIVE: Krystal indicates willingness to participate in PT. OBJECTIVE: PAIN: No complaints of pain BED MOBILITY/TRANSFERS Rolling L/R: I Supine-sit: Mod A (performed x2) Sit-supine: Max A (performed x2) Sit-stand: Mod A (performed x3) Stand-sit: Mod A (performed x3) Static sitting at EOB 2 x 1 minute with CGA/Min A GAIT Assistive Device: FWW Weight bearing: Full Assist: Mod A Distance: Static standing 2 x 30 seconds ASSESSMENT: Patient continues to require significant assist with transfers and bed mobility at this time. Patient was able to tolerate static sitting at EOB requiring CGA/Min A. Patient was also able to tolerate static standing requiring Mod A 2 x 30 seconds. Patient would benefit from continued conditioning and strengthening as well as transfer training for improved mobility and improved activity tolerance. PLAN: Continue with PTs POC TREATMENT CODE/TIME: 25 minutes; TA x2
[2018-08-31 16:30] VITALS: BP 147/87; PULSE 73; RESP 18; TEMP 37.1; O2SAT 96
[2018-08-31 19:39] VITALS: BP 137/88; PULSE 75; RESP 18; TEMP 37.3; O2SAT 94
[2018-09-01 00:12] VITALS: BP 138/90; PULSE 67; RESP 16; TEMP 37; O2SAT 94
[2018-09-01] MEDS: Milk of Magnesia 30 ML CUP PO (00:53)
[2018-09-01] MEDS: Docusate Sodium 100 MG CAP PO (00:53)
[2018-09-01 05:20] VITALS: BP 115/79; PULSE 74; RESP 18; TEMP 36.8; O2SAT 98
[2018-09-01] MEDS: Enoxaparin 40 MG/0.4 ML SYR SC (05:37)
[2018-09-01] MEDS: Levothyroxine 50 MCG TAB PO (05:37)
[2018-09-01] MEDS: Acetaminophen 500 MG TAB 1000 MG PO (07:07)
[2018-09-01 08:05] VITALS: BP 136/89; PULSE 67; RESP 16; TEMP 36.8; O2SAT 95
[2018-09-01] MEDS: Metoprolol 50 MG TAB PO ×2 (08:15→20:12)
[2018-09-01] MEDS: Atorvastatin 10 MG TAB PO (08:15)
[2018-09-01] MEDS: buPROPion-CR 100 MG TABCR PO ×2 (08:16→20:12)
[2018-09-01] MEDS: Mirabegron 50 MG TABCR PO (08:16)
[2018-09-01] MEDS: amLODIPine 5 MG TAB 10 MG PO (08:16)
[2018-09-01] MEDS: Lisinopril 20 MG TAB 40 MG PO (08:16)
[2018-09-01] MEDS: Omeprazole 20 MG CAPCR PO (08:16)
[2018-09-01] MEDS: traMADol 50 MG TAB PO (10:53)
[2018-09-01 12:10] VITALS: BP 124/79; PULSE 60; RESP 20; TEMP 36.4; O2SAT 97
--- NOTE | 2018-09-01 12:19 | PT.INTREAT ---
Date of service: 09/01/18 Time of Service: 12:19 PT Notes Inpatient Physical Therapy Treatment Note Date:09/01/18] PRECAUTIONS:Fall SUBJECTIVE: [] OBJECTIVE: [] PAIN: [] BED MOBILITY/TRANSFERS Rolling L/R: [] Supine-sit: minx2 Sit-supine: [] Sit-stand: Steady Minx2 Stand-sit: Steady Minx2 GAIT Assistive Device: Steady lift Weight bearing: Full Assist: [] Distance: Static standing approx 2 min ASSESSMENT: Pt required more assist with her bed mobility then her sit to stands transfers. PLAN: Cont as per PT POC. TREATMENT CODE/TIME: 11:30-11:55 (20) TA
[2018-09-01 16:18] VITALS: BP 125/84; PULSE 62; RESP 18; TEMP 36.1; O2SAT 97
[2018-09-01] MEDS: Normal Saline Flush 10 ML SYR IVP (20:17)
[2018-09-01 23:22] VITALS: BP 122/82; PULSE 60; RESP 17; TEMP 36.7; O2SAT 96
[2018-09-02 03:35] VITALS: BP 134/77; PULSE 69; RESP 16; TEMP 36.8; O2SAT 98
[2018-09-02] MEDS: traMADol 50 MG TAB PO ×2 (03:55→12:10)
[2018-09-02] MEDS: Levothyroxine 50 MCG TAB PO (06:28)
[2018-09-02] MEDS: Enoxaparin 40 MG/0.4 ML SYR SC (06:28)
[2018-09-02 07:20] VITALS: BP 153/93; PULSE 73; RESP 18; TEMP 36.6; O2SAT 96
[2018-09-02 07:48] LABS: Platelet Count 296 x1000/uL (130-400)
[2018-09-02] MEDS: Mirabegron 50 MG TABCR PO (08:18)
[2018-09-02] MEDS: Normal Saline Flush 10 ML SYR IVP ×2 (08:18→19:46)
[2018-09-02] MEDS: amLODIPine 5 MG TAB 10 MG PO (08:18)
[2018-09-02] MEDS: Milk of Magnesia 30 ML CUP PO (08:18)
[2018-09-02] MEDS: Lisinopril 20 MG TAB 40 MG PO (08:19)
[2018-09-02] MEDS: Atorvastatin 10 MG TAB PO (08:19)
[2018-09-02] MEDS: buPROPion-CR 100 MG TABCR PO ×2 (08:19→19:47)
[2018-09-02] MEDS: Omeprazole 20 MG CAPCR PO (08:19)
[2018-09-02] MEDS: Docusate Sodium 100 MG CAP PO (08:19)
[2018-09-02] MEDS: Metoprolol 50 MG TAB PO ×2 (08:19→19:47)
[2018-09-02 11:20] VITALS: BP 121/79; PULSE 64; RESP 18; TEMP 36.9; O2SAT 96
--- NOTE | 2018-09-02 12:15 | PT.INTREAT ---
Date of service: 09/02/18 Time of Service: 12:16 PT Notes Inpatient Physical Therapy Treatment Note Date: 09/02/18 PRECAUTIONS:Fall SUBJECTIVE: Pt reports that her back is sore today. She states that it is sore most of the time but it is the worst when she sits. OBJECTIVE: Supine-sit: Modx1 Sit-supine: Sit-stand: Steady CGA/Min x2 Stand-sit: Steady CG/Min assistx2 GAIT Assistive Device: Steady lift to the commode and then to the chair to sit up for lunch. Weight bearing: Full Assist: Steady THEREX: I did not have pt sit long to work on her sitting endurance due to her back pain. ASSESSMENT: Pt was not as motivated to sit up today and I let nursing know it may be do to her back pain that she is complaining of. PLAN: Cont as per PT POC. TREATMENT CODE/TIME: 11:45-12:05 (20) TA
[2018-09-02 16:24] VITALS: BP 120/77; PULSE 66; RESP 17; TEMP 36.4; O2SAT 96
[2018-09-02] MEDS: Acetaminophen 500 MG TAB 1000 MG PO (20:55)
--- NOTE | 2018-09-02 21:13 | NUR.NOTE ---
patient used call armenta to call, same was answered, cigarette smell was smelt and patient confessed that she smoking inside the room because she wants to go outside to smoke. Nursing supervisor television chassis repair was made aware of same.
[2018-09-03 04:44] VITALS: BP 147/69; PULSE 60; RESP 16; TEMP 36.5; O2SAT 95
[2018-09-03] MEDS: Enoxaparin 40 MG/0.4 ML SYR SC (06:42)
[2018-09-03] MEDS: Levothyroxine 50 MCG TAB PO (06:43)
[2018-09-03 07:20] VITALS: BP 148/93; PULSE 81; RESP 20; TEMP 37; O2SAT 96
[2018-09-03] MEDS: Atorvastatin 10 MG TAB PO (07:36)
[2018-09-03] MEDS: Docusate Sodium 100 MG CAP PO (07:36)
[2018-09-03] MEDS: Metoprolol 50 MG TAB PO ×2 (07:36→21:17)
[2018-09-03] MEDS: Normal Saline Flush 10 ML SYR IVP (07:36)
[2018-09-03] MEDS: Mirabegron 50 MG TABCR PO (07:36)
[2018-09-03] MEDS: amLODIPine 5 MG TAB 10 MG PO (07:36)
[2018-09-03] MEDS: Milk of Magnesia 30 ML CUP PO ×2 (07:36→18:55)
[2018-09-03] MEDS: Lisinopril 20 MG TAB 40 MG PO (07:36)
[2018-09-03] MEDS: buPROPion-CR 100 MG TABCR PO ×2 (07:36→21:17)
[2018-09-03] MEDS: Omeprazole 20 MG CAPCR PO (07:36)
[2018-09-03] MEDS: traMADol 50 MG TAB PO ×2 (07:37→18:56)
[2018-09-03 11:25] VITALS: BP 127/83; PULSE 64; RESP 16; TEMP 37; O2SAT 96
--- NOTE | 2018-09-03 12:42 | PT.INTREAT ---
Date of service: 09/03/18 Time of Service: 12:42 PT Notes Inpatient Physical Therapy Treatment Note Date: 09/03/18 PRECAUTIONS: Fall SUBJECTIVE: Krystal is agreeable to participating in PT. OBJECTIVE: PAIN: Patient c/o pain in L ribs and hip area with transfers. BED MOBILITY/TRANSFERS Rolling L/R: I Supine-sit: Mod A (performed x3) Sit-supine: Mod A (performed x3) Sit-stand: Refused Static sitting at EOB x20 seconds with Mod A ASSESSMENT: Patient tolerated session with c/o pain with transfers. She refused to perform sit<>stand transfers. She would benefit from continued transfer training and participation in a strengthening program. PLAN: Continue with PT's POC TREATMENT CODE/TIME: 10 minutes; STEFF
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
[2018-09-03 16:26] VITALS: BP 100/76; PULSE 61; RESP 20; TEMP 37; O2SAT 94
[2018-09-03 21:21] VITALS: BP 138/78; PULSE 68; RESP 18; TEMP 37; O2SAT 96
[2018-09-03 23:38] VITALS: BP 141/84; PULSE 56; RESP 19; TEMP 37; O2SAT 96
[2018-09-04] VITALS (7 sets, daily range): BP systolic 104–202; BP diastolic 70–102; PULSE 55–70; RESP 16–19; TEMP 36.2–37.1; O2SAT 96–98
[2018-09-04] MEDS: Omeprazole 20 MG CAPCR PO (06:03)
[2018-09-04] MEDS: Enoxaparin 40 MG/0.4 ML SYR SC (06:03)
[2018-09-04] MEDS: Levothyroxine 50 MCG TAB PO (06:03)
[2018-09-04 07:19] LABS: Platelet Count 318 x1000/uL (130-400)
[2018-09-04] MEDS: Metoprolol 50 MG TAB PO ×2 (08:02→21:09)
[2018-09-04] MEDS: Milk of Magnesia 30 ML CUP PO (08:02)
[2018-09-04] MEDS: Atorvastatin 10 MG TAB PO (08:02)
[2018-09-04] MEDS: buPROPion-CR 100 MG TABCR PO ×2 (08:03→21:09)
[2018-09-04] MEDS: Normal Saline Flush 10 ML SYR IVP ×2 (08:03→21:09)
[2018-09-04] MEDS: Lisinopril 20 MG TAB 40 MG PO (08:03)
[2018-09-04] MEDS: Docusate Sodium 100 MG CAP PO (08:03)
[2018-09-04] MEDS: amLODIPine 5 MG TAB 10 MG PO (08:03)
[2018-09-04] MEDS: Mirabegron 50 MG TABCR PO (08:03)
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
--- NOTE | 2018-09-04 09:11 | PT.INTREAT ---
Date of service: 09/04/18 Time of Service: 09:03 PT Notes Inpatient Physical Therapy Treatment Note Date: 09/04/18 PRECAUTIONS: Fall precuation, Pt is deaf use communication resources SUBJECTIVE: Pt lying in bed watching TV, alert, able to read lips for communication and use hand gestures and verbalizations to communicate with therapist. Therapist explained to patient the purpose of therapy session, to focus on transfers, attempt standing with goal for her to be able to get in a car to get back to her family. Pt nodded yes in agreement. OBJECTIVE: PAIN: c/o pain right side and right hip with movement, not rated. BED MOBILITY/TRANSFERS Rolling L/R: independent with bed rail Supine-sit: 3 attempts at sitting at edge of bed. HOB 40 degrees, pt able to reach R UE to bedrail and get legs off side of bed, when transitioning to sitting position pt sits up 3/[address] then complains of right side pain and lays back down in bed. Sit-supine: minAx1 Sit-stand: refused to attempt Bed-Chair: refused to attempt GAIT refused to attempt, wanting to lay back down in bed. ASSESSMENT: Pt has been seen for 6 visits in the past week, she has made very minimal progress with therapy intervention, continuing to require mod-maxA for transfers to sitting at edge of bed, standing for 20-30seconds only with FWW or STEDY lift 3x in 6 sessions, has been unable to progress to transfers to chair or gait training and remains mostly bed bound, wanting to lay back down rather than progress mobility. Pt has been pre-medicated for pain prior to therapy sessions and for the most part pain has been well managed, with occasional pain during intermittent sessions. Plan for patient is to return to [place] with family, at this time patient would be unable to get into/out of car or airplane, requiring maxA/total lift assist for all mobility. Pt may require sound recording technician care facility locally if she is unable to progress mobility to transport, or she would require ambulance transport to her destination. PLAN: Progress transfers as able Progress gait as able TREATMENT CODE/TIME: 24 min TAx2 9:03 Marium Mauricio PT
--- NOTE | 2018-09-04 09:23 | PTTR_ITS ---
Date of service: 09/04/18 Time of Service: 09:03 PT Notes Inpatient Physical Therapy Treatment Note Date: 09/04/18 PRECAUTIONS: Fall precuation, Pt is deaf use communication resources SUBJECTIVE: Pt lying in bed watching TV, alert, able to read lips for communication and use hand gestures and verbalizations to communicate with therapist. Therapist explained to patient the purpose of therapy session, to focus on transfers, attempt standing with goal for her to be able to get in a car to get back to her family. Pt nodded yes in agreement. OBJECTIVE: PAIN: c/o pain right side and right hip with movement, not rated. BED MOBILITY/TRANSFERS Rolling L/R: independent with bed rail Supine-sit: 3 attempts at sitting at edge of bed. HOB 40 degrees, pt able to reach R UE to bedrail and get legs off side of bed, when transitioning to sitting position pt sits up 3/[address] then complains of right side pain and lays back down in bed. Sit-supine: minAx1 Sit-stand: refused to attempt Bed-Chair: refused to attempt GAIT refused to attempt, wanting to lay back down in bed. ASSESSMENT: Pt has been seen for 6 visits in the past week, she has made very minimal progress with therapy intervention, continuing to require mod-maxA for transfers to sitting at edge of bed, standing for 20-30seconds only with FWW or STEDY lift 3x in 6 sessions, has been unable to progress to transfers to chair or gait training and remains mostly bed bound, wanting to lay back down rather than progress mobility. Pt has been pre-medicated for pain prior to therapy sessions and for the most part pain has been well managed, with occasional pain during intermittent sessions. Plan for patient is to return to [place] with family, at this time patient would be unable to get into/out of car or airplane, requiring maxA/total lift assist for all mobility. Pt may require adjunct faculty for medical terminology care facility locally if she is unable to progress mobility to transport, or she would require ambulance transport to her destination. PLAN: Progress transfers as able Progress gait as able TREATMENT CODE/TIME: 24 min TAx2 9:03 Marium Mauricio PT
[2018-09-04 09:50] LABS: *AMPHETAMINES SCREEN URINE Negative (Negative); *BARBITURATES SCREEN URINE Negative (Negative); *BENZODIAZEPINES SCREEN URINE Negative (Negative); Cannabinoids THC POSITIVE (Negative); Cocaine Screen,Urine Negative (Negative); METHADONE URINE SCREEN Negative (Negative); OPIATES URINE SCREEN Negative (Negative)
[2018-09-04 09:54] LABS: Tricyclic Antidepressants Negative (Negative)
[2018-09-04] MEDS: Bisacodyl 5 MG TABEC PO (11:19)
--- NOTE | 2018-09-04 13:35 | PT.INNT ---
Date of service: 09/04/18 Time of Service: 13:35 PT Notes PHYSICAL THERAPY NOTE 09/04/18 Attempted to see patient for therapy session, pt resting in bed watching TV. Pt refused therapy session stating she was too tired'. Will continue attempts Marium Mauricio PT
[2018-09-04] MEDS: Acetaminophen 500 MG TAB 1000 MG PO (21:09)
[2018-09-05 00:09] VITALS: BP 132/87; PULSE 56; RESP 18; TEMP 36.6; O2SAT 96
[2018-09-05 03:55] VITALS: BP 121/76; PULSE 60; RESP 16; TEMP 36.7; O2SAT 99
[2018-09-05] MEDS: Enoxaparin 40 MG/0.4 ML SYR SC (06:27)
[2018-09-05] MEDS: Levothyroxine 50 MCG TAB PO (06:28)
[2018-09-05 07:23] VITALS: BP 126/78; PULSE 59; RESP 16; TEMP 36.3; O2SAT 96
[2018-09-05] MEDS: Lisinopril 20 MG TAB 40 MG PO (09:19)
[2018-09-05] MEDS: amLODIPine 5 MG TAB 10 MG PO (09:19)
[2018-09-05] MEDS: buPROPion-CR 100 MG TABCR PO ×2 (09:19→20:08)
[2018-09-05] MEDS: Omeprazole 20 MG CAPCR PO (09:19)
[2018-09-05] MEDS: Atorvastatin 10 MG TAB PO (09:19)
[2018-09-05] MEDS: Mirabegron 50 MG TABCR PO (09:19)
[2018-09-05] MEDS: Metoprolol 50 MG TAB PO ×2 (09:19→20:08)
--- NOTE | 2018-09-05 10:05 | PT.INTREAT ---
Date of service: 09/05/18 Time of Service: 10:05 PT Notes Inpatient Physical Therapy Treatment Note Date: 09/05/18 PRECAUTIONS: Fall SUBJECTIVE: Krystal would like to go back to bed, she states that she is really tired. OBJECTIVE: PAIN: No c/o pain BED MOBILITY/TRANSFERS: Patient up in chair with nsg prior to PT session. THEREX: Patient completed an open-chain LE and UE strengthening program, as per flow sheet. Patient requires assist with L UE due to weakness and contractures. ASSESSMENT: Patient tolerated session with c/o fatigue. Patient was able to tolerate a progression in her ther ex program. PLAN: Continue with PT's POC TREATMENT CODE/TIME: 23 minutes; TP x2
[2018-09-05 11:35] VITALS: BP 134/84; PULSE 65; RESP 17; TEMP 36.8; O2SAT 96
[2018-09-05] MEDS: Acetaminophen 500 MG TAB 1000 MG PO ×2 (12:19→20:08)
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
--- NOTE | 2018-09-05 15:23 | PT.INTREAT ---
Date of service: 09/05/18 Time of Service: 15:23 PT Notes Inpatient Physical Therapy Treatment Note Date: 09/05/18 PRECAUTIONS: Fall SUBJECTIVE: Krystal is agreeable to participate in PT. OBJECTIVE: PAIN: No complaints of pain BED MOBILITY/TRANSFERS Supine-sit: Mod A with HOB at 10 degrees Sit-stand: Mod A x2 Stand-sit: Mod A x2 GAIT Assistive Device: FWW/RADIOLOGY TECHNOLOGIST Weight bearing: WBAT on L Assist: Mod A x2 Distance: 30' +20' Deviation: Cueing for FWW mechanics and foot placement ASSESSMENT: Patient tolerated session with c/o fatigue. She was able to tolerate a progression in gait distance, although requires Mod A x2 and cueing for FWW mechanics and foot placement throughout. She would benefit from continued gait and transfer trainin gas well as strengthening for improved mobility. PLAN: Continue with PT's POC TREATMENT CODE/TIME: 20 minutes; STEFF
--- NOTE | 2018-09-05 15:28 | PTTR_ITS ---
Date of service: 09/05/18 Time of Service: 15:23 PT Notes Inpatient Physical Therapy Treatment Note Date: 09/05/18 PRECAUTIONS: Fall SUBJECTIVE: Krystal is agreeable to participate in PT. OBJECTIVE: PAIN: No complaints of pain BED MOBILITY/TRANSFERS Supine-sit: Mod A with HOB at 10 degrees Sit-stand: Mod A x2 Stand-sit: Mod A x2 GAIT Assistive Device: FWW/ELEVATOR PILOT Weight bearing: WBAT on L Assist: Mod A x2 Distance: 30' +20' Deviation: Cueing for FWW mechanics and foot placement ASSESSMENT: Patient tolerated session with c/o fatigue. She was able to tolerate a progression in gait distance, although requires Mod A x2 and cueing for FWW mechanics and foot placement throughout. She would benefit from continued gait and transfer trainin gas well as strengthening for improved mobility. PLAN: Continue with PT's POC TREATMENT CODE/TIME: 20 minutes; STEFF
[2018-09-05 16:32] VITALS: BP 116/80; PULSE 62; RESP 18; TEMP 36.2; O2SAT 96
[2018-09-05 20:06] VITALS: BP 116/72; PULSE 60; RESP 14; TEMP 36.7; O2SAT 96
[2018-09-05] MEDS: Normal Saline Flush 10 ML SYR IVP (20:08)
--- NOTE | 2018-09-05 20:38 | NUR.NOTE ---
Nursing Note: Pt is in need of a behavioral plan and toileting schedule. On my arrival at 1900 this evening pt was toileted by bedpan at least 3 times between 1900 and 1999. I discussed a toileting plan for her overnight that staff would 2 assist her to the toilet every hour on the hour. She walked to the bathroom this am 2 assist. A timer has been set for hourly alarms so staff are vigilant about arriving on time every hour.
[2018-09-06 00:13] VITALS: BP 132/77; PULSE 57; RESP 18; TEMP 36.5; O2SAT 97
[2018-09-06] MEDS: Enoxaparin 40 MG/0.4 ML SYR SC (06:01)
[2018-09-06] MEDS: Levothyroxine 50 MCG TAB PO (06:02)
--- NOTE | 2018-09-06 06:06 | NUR.NOTE ---
Nursing Note: Krystal has walked to the bathroom 2A w FWW and GB every hour except 0500 between 2100 and 0600. She voided 5 of the 9 times and had a sm bm.
[2018-09-06 07:40] VITALS: BP 125/78; PULSE 63; RESP 18; TEMP 36.5; O2SAT 96
[2018-09-06] MEDS: Acetaminophen 500 MG TAB 1000 MG PO (08:57)
[2018-09-06] MEDS: Mirabegron 50 MG TABCR PO (09:03)
[2018-09-06] MEDS: amLODIPine 5 MG TAB 10 MG PO (09:03)
[2018-09-06] MEDS: Atorvastatin 10 MG TAB PO (09:03)
[2018-09-06] MEDS: Omeprazole 20 MG CAPCR PO (09:03)
[2018-09-06] MEDS: Metoprolol 50 MG TAB PO ×2 (09:04→21:54)
[2018-09-06] MEDS: Lisinopril 20 MG TAB 40 MG PO (09:04)
[2018-09-06] MEDS: buPROPion-CR 100 MG TABCR PO ×2 (09:04→21:54)
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
[2018-09-06 11:45] VITALS: BP 147/82; PULSE 63; RESP 17; TEMP 36.4; O2SAT 96
[2018-09-06 16:13] VITALS: BP 148/86; PULSE 78; RESP 17; TEMP 36.8; O2SAT 97
[2018-09-06 19:38] VITALS: BP 111/71; PULSE 64; RESP 18; TEMP 36.9; O2SAT 98
[2018-09-06] MEDS: Normal Saline Flush 10 ML SYR IVP (21:55)
[2018-09-07] VITALS (7 sets, daily range): BP systolic 116–188; BP diastolic 71–91; PULSE 55–67; RESP 18–20; TEMP 36.5–37; O2SAT 96–98
[2018-09-07] MEDS: Levothyroxine 50 MCG TAB PO (06:32)
[2018-09-07] MEDS: Enoxaparin 40 MG/0.4 ML SYR SC (06:32)
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
[2018-09-07 07:58] LABS: Platelet Count 301 x1000/uL (130-400)
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
[2018-09-07] MEDS: Metoprolol 50 MG TAB PO ×2 (09:12→20:33)
[2018-09-07] MEDS: Atorvastatin 10 MG TAB PO (09:12)
[2018-09-07] MEDS: buPROPion-CR 100 MG TABCR PO ×2 (09:12→20:33)
[2018-09-07] MEDS: Acetaminophen 500 MG TAB 1000 MG PO (09:12)
[2018-09-07] MEDS: Lisinopril 20 MG TAB 40 MG PO (09:13)
[2018-09-07] MEDS: Mirabegron 50 MG TABCR PO (09:13)
[2018-09-07] MEDS: LORazepam 0.5 MG TAB PO (09:13)
[2018-09-07] MEDS: Omeprazole 20 MG CAPCR PO (09:13)
[2018-09-07] MEDS: amLODIPine 5 MG TAB 10 MG PO (09:13)
--- NOTE | 2018-09-07 14:07 | PT.INNT ---
Date of service: 09/07/18 Time of Service: 14:08 PT Notes PHYSICAL THERAPY NOTE 09/07/18 2 attempts to see patient for therapy session, 1st attempt pt already up in chair with nursing assist and sleeping in chair. 2nd attempt pt already back to bed, pt deferred therex and 2nd mobility session stating she was too tired. Will continue attempts to see patient for PT and attempt to coordinate with nursing transfers to chair. Marium Mauricio PT
[2018-09-08 04:01] VITALS: BP 117/82; PULSE 61; RESP 20; TEMP 36.5; O2SAT 96
[2018-09-08] MEDS: Levothyroxine 50 MCG TAB PO (05:53)
[2018-09-08] MEDS: amLODIPine 5 MG TAB 10 MG PO (08:07)
[2018-09-08] MEDS: Lisinopril 20 MG TAB 40 MG PO (08:07)
[2018-09-08] MEDS: Omeprazole 20 MG CAPCR PO (08:07)
[2018-09-08] MEDS: Acetaminophen 500 MG TAB 1000 MG PO (08:07)
[2018-09-08] MEDS: buPROPion-CR 100 MG TABCR PO ×2 (08:08→20:44)
[2018-09-08] MEDS: Atorvastatin 10 MG TAB PO (08:08)
[2018-09-08] MEDS: Mirabegron 50 MG TABCR PO (08:08)
[2018-09-08 08:11] VITALS: BP 115/78; PULSE 51; RESP 16; TEMP 37; O2SAT 97
[2018-09-08 10:02] VITALS: BP 121/73; PULSE 62
--- NOTE | 2018-09-08 12:02 | PT.INTREAT ---
Date of service: 09/08/18 Time of Service: 12:02 PT Notes Inpatient Physical Therapy Treatment Note Date: 09/08/18 PRECAUTIONS: Fall SUBJECTIVE: Krystal is agreeable to PT OBJECTIVE: PAIN: Patient c/o L hip pain with transfers and gait training BED MOBILITY/TRANSFERS Supine-sit: Min A Sit-stand: Mod A Stand-sit: Min A GAIT Assistive Device: FWW Weight bearing: Full Assist: CGA x2 Distance: 40' x2 Deviation: Assist with L foot advancement ASSESSMENT: Patient tolerated session well with minimal c/o pain in L hip. She was able to tolerate a progression in gait distance with FWW support, although requires assist with L foot advancement. PLAN: Continue with PT's POC TREATMENT CODE/TIME: 20 minutes; STEFF
[2018-09-08 13:00] VITALS: BP 115/75; PULSE 71; RESP 18; TEMP 36.8; O2SAT 96
[2018-09-08 15:42] VITALS: BP 117/79; PULSE 66; RESP 18; TEMP 36.7; O2SAT 98
[2018-09-08] MEDS: Metoprolol 50 MG TAB PO (20:44)
[2018-09-09] MEDS: Levothyroxine 50 MCG TAB PO (06:30)
[2018-09-09] MEDS: Enoxaparin 40 MG/0.4 ML SYR SC (06:30)
[2018-09-09 07:30] VITALS: BP 118/81; PULSE 72; RESP 17; TEMP 37; O2SAT 97
[2018-09-09] MEDS: buPROPion-CR 100 MG TABCR PO ×2 (08:37→20:58)
[2018-09-09] MEDS: Acetaminophen 500 MG TAB 1000 MG PO (08:37)
[2018-09-09] MEDS: Mirabegron 50 MG TABCR PO (08:37)
[2018-09-09] MEDS: Atorvastatin 10 MG TAB PO (08:37)
[2018-09-09] MEDS: amLODIPine 5 MG TAB 10 MG PO (08:37)
[2018-09-09] MEDS: Lisinopril 20 MG TAB 40 MG PO (08:38)
[2018-09-09] MEDS: Metoprolol 50 MG TAB PO ×2 (08:38→20:58)
[2018-09-09] MEDS: Omeprazole 20 MG CAPCR PO (08:38)
--- NOTE | 2018-09-09 12:29 | PT.INTREAT ---
Date of service: 09/09/18 Time of Service: 12:29 PT Notes Inpatient Physical Therapy Treatment Note Date: 09/09/18 PRECAUTIONS: Fall SUBJECTIVE: Krystal is agreeable to participating in PT. OBJECTIVE: PAIN: Patient complained of soreness in right hip with gait training BED MOBILITY/TRANSFERS Supine-sit: CGA Sit-stand: Min A Stand-sit: Min A GAIT Assistive Device: FWW Weight bearing: Full Assist: CGA x2 Distance: 50' x2 Deviation: Assist with FWW mechanics, cueing for left foot advancement ASSESSMENT: Patient tolerated a slight progression in her gait distance today, with FWW support and CGA x2. Patient continues to require cueing for left foot advancement as well as physical assist with FWW mechanics. Patient would benefit from continued gait training as well as transfer training for improved mobility. PLAN: Continue with PT's POC TREATMENT CODE/TIME: 20 minutes; STEFF
[2018-09-09 22:16] VITALS: BP 122/89; PULSE 64; RESP 19; TEMP 36.6; O2SAT 96
[2018-09-09 22:35] VITALS: BP 113/80; PULSE 54; RESP 18; TEMP 36.4; O2SAT 95
--- NOTE | 2018-09-09 23:18 | DI.CT_ITS ---
SYMPTOM/DIAGNOSIS: FALL AND HIT HEAD NONCONTRAST HEAD CT: Comparison is made with 28 July 2018. Severe atrophy is again noted. There is severe atrophy of the cerebellum. There is severe white matter changes. No acute hemorrhage or skull fracture is identified. There are old bilateral lacunar infarcts in the basal ganglia. IMPRESSION: Severe atrophy and white matter changes. No acute abnormality.
[2018-09-09 23:35] VITALS: BP 130/85; PULSE 60; RESP 20; TEMP 36.7; O2SAT 96
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
--- NOTE | 2018-09-10 00:06 | W.PM.PROGNOT ---
Date of Service Date of service: 09/10/18 Time of Service: 00:07 Assessment and Plan (1) Fall from bed: Current visit: Yes Status: Suspected I found no external evidence for soft tissue or bony injury. CT scan of the head without contrast showed no acute findings. This point I think patient can be observed with frequent neuro checks and if there is no clinical deterioration then no further workup is necessary. Patient can be treated with her usual dose of tramadol or Tylenol and an ice pack as needed. Subjective Interval history since last seen: Patient was found on the floor by nursing staff. This occurred around 10:16 PM. Patient was found to be rubbing the left side of her jaw and reportedly hit her head. Because the patient has been on Lovenox 40 mg subcutaneously daily for DVT prophylaxis I ordered a stat CT of her head without contrast. The report came back showing no acute findings but has extensive chronic white matter changes as well as old lacunar infarcts. There is been no change compared to her prior CT of her head from July 28, 2018. Exam [facility] Head: normocephalic, atraumatic, no abrasions, no contusions, no hematomas, no lacerations, no scalp tenderness and other (Patient has a prominence over the right frontal temporal area that feels like a bony exostosis. There is no bogginess to the scalp and no evidence of hematoma or laceration. Scalp is nontender to palpation.) Neck Neck: normal visual inspection, full ROM, supple and nontender Objective Objective Clinical Data: Vital Signs Temperature 36.7 C 09/09/18 23:35 Temperature Source Tympanic 09/09/18 23:35 Pulse 60 09/09/18 23:35 Pulse Rhythm Regular 09/09/18 17:00 Respiratory Rate 20 09/09/18 23:35 Respiratory Effort Non-Labored 09/09/18 17:00 Respiratory Depth Normal 09/09/18 17:00 Respiratory Pattern Normal 09/09/18 17:00 Blood Pressure 130/85 09/09/18 23:35 Pulse Oximetry 96 09/09/18 23:35 Oxygen Delivery Method Room Air 09/09/18 23:35 Oxygen Flow Rate 0 09/09/18 23:35 Pain Level 0 09/09/18 09:37 Comment 09/08/18 10:02 Intake & Output 09/09/18 09/09/18 09/10/18 11:59 23:59 11:59 Intake Total 730 / 730 240 / 240 Output Total 950 / 950 475 / 475 Balance -220 / -220 -235 / -235 Intake: Oral 730 / 730 240 / 240 Output: Urine 950 / 950 475 / 475 Other: Urine Color Yellow Yellow Urine Appearance Clear Clear Urine Odor None Normal Comment Void x1 in the bedside commode. pt stated she had to go. no output Voiding Methods Toilet Bedpan Laboratory Results Plt Count 301 x1000/uL (130-400) 09/07/18 06:30 Magnesium 2.2 mg/dL (1.8-2.4) 08/31/18 06:30 Urine Opiates Screen Negative (Negative) 09/03/18 12:55 Urine Methadone Screen Negative (Negative) 09/03/18 12:55 Ur Barbiturates Screen Negative (Negative) 09/03/18 12:55 Ur Tricyclics Screen Negative (Negative) 09/03/18 12:55 Ur Amphetamines Screen Negative (Negative) 09/03/18 12:55 U Benzodiazepines Scrn Negative (Negative) 09/03/18 12:55 Urine Cocaine Screen Negative (Negative) 09/03/18 12:55 Ur THC Screen Positive (Negative) 09/03/18 12:55 Objective Narrative Objective Narrative: Noncontrast CT scan of the head: IMPRESSION: 1. No acute findings. 2. Extensive chronic white matter change for a patient of this age. 3. Old lacunar infarcts. Dictated and Authenticated by: Dayday Albarado MD.
[2018-09-10 03:51] VITALS: BP 142/89; PULSE 87; RESP 18; TEMP 36.3; O2SAT 100
[2018-09-10] MEDS: Levothyroxine 50 MCG TAB PO (06:30)
[2018-09-10 07:20] VITALS: BP 124/86; PULSE 75; RESP 18; TEMP 37; O2SAT 96
[2018-09-10 07:25] LABS: Platelet Count 304 x1000/uL (130-400)
[2018-09-10] MEDS: Atorvastatin 10 MG TAB PO (08:43)
[2018-09-10] MEDS: Metoprolol 50 MG TAB PO ×2 (08:43→19:41)
[2018-09-10] MEDS: buPROPion-CR 100 MG TABCR PO ×2 (08:43→19:41)
[2018-09-10] MEDS: amLODIPine 5 MG TAB 10 MG PO (08:43)
[2018-09-10] MEDS: Omeprazole 20 MG CAPCR PO (08:43)
[2018-09-10] MEDS: Mirabegron 50 MG TABCR PO (08:43)
[2018-09-10] MEDS: Lisinopril 20 MG TAB 40 MG PO (08:44)
[2018-09-10] MEDS: traMADol 50 MG TAB PO (08:50)
--- NOTE | 2018-09-10 12:47 | PT.INTREAT ---
Date of service: 09/10/18 Time of Service: 07:40 PT Notes Inpatient Physical Therapy Treatment Note Date: 09/10/18 PRECAUTIONS: Fall SUBJECTIVE: Krystal is agreeable to participate in PT OBJECTIVE: PAIN: Patient c/o pain in R hip with gait training BED MOBILITY/TRANSFERS Supine-sit: Mod A Sit-stand: Min A Stand-sit: Mod A GAIT Assistive Device: FWW Weight bearing: WBAT on L Assist: CGA x2 Distance: 60' x2 Deviation: Cueing for L foot advancement, FWW mechincs ASSESSMENT: Patient would benefit from continued gait and transfer training for improved mobility as well as increased independence with transfers and increased gait duration with FWW support. PLAN: Continue with PT's POC TREATMENT CODE/TIME: 25 minutes; TAx2
--- NOTE | 2018-09-10 15:42 | PT.INTREAT ---
Date of service: 09/10/18 Time of Service: 15:42 PT Notes Inpatient Physical Therapy Treatment Note Date: 09/10/18 PRECAUTIONS:Fall SUBJECTIVE: Krystal is agreeable to PT, although states that she is tired. OBJECTIVE: PAIN: Patient c/o soreness in R hip with gait training BED MOBILITY/TRANSFERS Supine-sit: Mod A Sit-stand: Min A Stand-sit: Mod A GAIT Assistive Device: FWW Weight bearing: Full Assist: CGA Distance: 30'x2 Deviation: Cueing for left foot advancement ASSESSMENT: Patient tolerated session with c/o increased fatigue and soreness in R hip area. She would benefit from continued gait training for improved endurance as well as for improved gait mechanics. PLAN: Continue with PT's POC TREATMENT CODE/TIME: 15 minutes; TA
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
--- NOTE | 2018-09-10 19:43 | NUR.NOTE ---
pt encouraged to use call lights whenever she needs to use the potty, signed that she understood and will use the call lights when she needs to do so.
[2018-09-11 00:52] VITALS: BP 94/64; PULSE 66; RESP 17; TEMP 36.7; O2SAT 99
[2018-09-11 03:40] VITALS: BP 127/79; PULSE 58; RESP 16; TEMP 36.7; O2SAT 97
[2018-09-11] MEDS: Acetaminophen 500 MG TAB 1000 MG PO (06:13)
[2018-09-11] MEDS: Levothyroxine 50 MCG TAB PO (06:13)
[2018-09-11 07:15] VITALS: BP 129/93; PULSE 61; RESP 18; TEMP 36.7; O2SAT 98
[2018-09-11] MEDS: Metoprolol 50 MG TAB PO ×2 (08:54→19:30)
[2018-09-11] MEDS: Atorvastatin 10 MG TAB PO (08:54)
[2018-09-11] MEDS: Docusate Sodium 100 MG CAP PO (08:54)
[2018-09-11] MEDS: amLODIPine 5 MG TAB 10 MG PO (08:54)
[2018-09-11] MEDS: Lisinopril 20 MG TAB 40 MG PO (08:54)
[2018-09-11] MEDS: Omeprazole 20 MG CAPCR PO (08:54)
[2018-09-11] MEDS: buPROPion-CR 100 MG TABCR PO ×2 (08:54→19:30)
[2018-09-11] MEDS: Mirabegron 50 MG TABCR PO (08:55)
[2018-09-11] MEDS: Bisacodyl 5 MG TABEC PO (08:55)
--- NOTE | 2018-09-11 11:40 | PT.INTREAT ---
Date of service: 09/11/18 Time of Service: 11:40 PT Notes Inpatient Physical Therapy Treatment Note Date: 09/11/18 PRECAUTIONS: Fall SUBJECTIVE: Krystal states that her R LE is tired this morning and she is sore. OBJECTIVE: PAIN: Patient c/o overall soreness this morning BED MOBILITY/TRANSFERS Supine-sit: SBA Sit-stand: SBA Stand-sit: SBA GAIT Assistive Device: FWW Weight bearing: WBAT Assist: CGA Distance: 30' x2 + 10' x2 Deviation: Fatigued, cueing for L foot advancement and FWW mechanics. THEREX: Patient completed a LE strengthening program, as per flow sheet. TOILETING: Patient toileted with supervision ASSESSMENT: Patient tolerated session with c/o increased fatigue and global soreness. She would benefit from continued strengthening and gait training for improved mobility. PLAN: Continue with PT's POC TREATMENT CODE/TIME: 25 minutes; TA/TP
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
--- NOTE | 2018-09-11 15:20 | PT.INTREAT ---
Date of service: 09/11/18 Time of Service: 15:16 PT Notes Inpatient Physical Therapy Treatment Note Date: 09/11/18 PRECAUTIONS: Fall precautions SUBJECTIVE: Pt up in bathroom with nursing, agreeable to therapy gait training back to bed, deferred gait in hallway. OBJECTIVE: PAIN: no c/o pain BED MOBILITY/TRANSFERS Rolling L/R: independent Supine-sit: SBA Sit-supine: independent Sit-stand: SBA with FWW Stand-sit: SBA Bathroom to bed: CGA with FWW GAIT Assistive Device: FWW Weight bearing: as tolerated Assist: CGA Distance: 25ftx1 Deviation: step through gait pattern with decreased stride length, pt gait on toes vs heel to toe pattern, needs instruction to improve heel strike and loading of LE's for longer stride. Pt deferred gait in hallway, wanting to transfer back to bed after toileting. Pt positioned in bed with fall alarm activated. THEREX: supine SLR and hip abduction x 20 reps bilaterally ASSESSMENT: Improved strength with transfers, improved gait mobility to/from bathroom for toileting. Standing balance continues to be poor requiring one person assist for safety. Plan is for patient to discharge to [place] at the end of the week for transfer to SNF for continued therapy services. PLAN: Progress transfers Progress gait Progress strengthening TREATMENT CODE/TIME: 10min TAx1 [id number] Marium Mauricio PT
[2018-09-11 23:17] VITALS: BP 116/77; PULSE 56; RESP 20; TEMP 36.5; O2SAT 95
[2018-09-12] MEDS: Levothyroxine 50 MCG TAB PO (06:53)
[2018-09-12] MEDS: Enoxaparin 40 MG/0.4 ML SYR SC (06:53)
[2018-09-12 07:45] VITALS: BP 116/76; PULSE 59; RESP 17; TEMP 36.4; O2SAT 98
[2018-09-12] MEDS: amLODIPine 5 MG TAB 10 MG PO (08:10)
[2018-09-12] MEDS: Metoprolol 50 MG TAB PO ×2 (08:10→19:59)
[2018-09-12] MEDS: Atorvastatin 10 MG TAB PO (08:11)
[2018-09-12] MEDS: Omeprazole 20 MG CAPCR PO (08:11)
[2018-09-12] MEDS: buPROPion-CR 100 MG TABCR PO ×2 (08:11→19:59)
[2018-09-12] MEDS: Lisinopril 20 MG TAB 40 MG PO (08:11)
[2018-09-12] MEDS: Mirabegron 50 MG TABCR PO (08:11)
[2018-09-12 08:45] VITALS: BP 127/74; PULSE 67; RESP 18; TEMP 36.5; O2SAT 98
[2018-09-12 09:45] VITALS: BP 123/75; PULSE 67; RESP 17; TEMP 36.7; O2SAT 98
[2018-09-12 10:45] VITALS: BP 107/72; PULSE 64; RESP 17; TEMP 36.4; O2SAT 97
--- NOTE | 2018-09-12 11:13 | PT.INTREAT ---
Date of service: 09/12/18 Time of Service: 11:13 PT Notes Inpatient Physical Therapy Treatment Note Date: 09/12/18 PRECAUTIONS: Fall SUBJECTIVE: Krystal is agreeable to PT OBJECTIVE: PAIN: Patient c/o R hip pain with gait training BED MOBILITY/TRANSFERS Sit-supine: I Sit-stand: SBA Stand-sit: SBA GAIT Assistive Device: FWW Weight bearing: Full Assist: CGA Distance: 50' x2 TOILETING: Patient toileted with SBA ASSESSMENT: Patient tolerated gait training with increased fatigue, requiring standing rest x2, as well as cueing for L foot advancement. She also c/o R hip pain with gait training. Patient would benefit from continued gait and transfer training for improved endurance and mobility. PLAN: Continue with PT's POC TREATMENT CODE/TIME: 25 minutes; TAx2
[2018-09-12 12:45] VITALS: BP 104/70; PULSE 61; RESP 18; TEMP 36.7; O2SAT 98
[2018-09-12 14:45] VITALS: BP 137/87; PULSE 58; RESP 18; TEMP 36.4; O2SAT 98
--- NOTE | 2018-09-12 14:58 | PT.INTREAT ---
Date of service: 09/12/18 Time of Service: 15:03 PT Notes Inpatient Physical Therapy Treatment Note Date: 09/12/18 PRECAUTIONS: Fall SUBJECTIVE: Krystal is agreeable to participating in PT. OBJECTIVE: PAIN: Patient c/o elbow R pain with [id number] transfer, R hip pain with gait training BED MOBILITY/TRANSFERS Supine-sit: I Sit-supine: I Sit-stand: SBA Stand-sit: SBA GAIT Assistive Device: FWW Weight bearing: Full Assist: CGA Distance: 75'x2 Deviation: Seated rest x1, cueing for L foot advancement, FWW mechanics TOILETING: Patient toileted with SBA ASSESSMENT: Patient tolerated session with c/o pain in R elbow with transfer and R hip with gait training. Patient was able to tolerate a progression in gait distance with FWW and seated rest. She continues to require cueing for L foot advancement and for FWW mechanics. PLAN: Continue with PT's POC TREATMENT CODE/TIME: 25 minutes; TAx2
--- NOTE | 2018-09-12 15:04 | PTTR_ITS ---
Date of service: 09/12/18 Time of Service: 15:03 PT Notes Inpatient Physical Therapy Treatment Note Date: 09/12/18 PRECAUTIONS: Fall SUBJECTIVE: Krystal is agreeable to participating in PT. OBJECTIVE: PAIN: Patient c/o elbow R pain with [id number] transfer, R hip pain with gait training BED MOBILITY/TRANSFERS Supine-sit: I Sit-supine: I Sit-stand: SBA Stand-sit: SBA GAIT Assistive Device: FWW Weight bearing: Full Assist: CGA Distance: 75'x2 Deviation: Seated rest x1, cueing for L foot advancement, FWW mechanics TOILETING: Patient toileted with SBA ASSESSMENT: Patient tolerated session with c/o pain in R elbow with transfer and R hip with gait training. Patient was able to tolerate a progression in gait distance with FWW and seated rest. She continues to require cueing for L foot advancement and for FWW mechanics. PLAN: Continue with PT's POC TREATMENT CODE/TIME: 25 minutes; TAx2
[2018-09-12] MEDS: Acetaminophen 500 MG TAB 1000 MG PO (23:17)
[2018-09-13] MEDS: Levothyroxine 50 MCG TAB PO (05:00)
[2018-09-13] MEDS: Enoxaparin 40 MG/0.4 ML SYR SC (05:00)
[2018-09-13 07:31] LABS: Platelet Count 290 x1000/uL (130-400)
[2018-09-13] MEDS: Omeprazole 20 MG CAPCR PO (09:06)
[2018-09-13] MEDS: Mirabegron 50 MG TABCR PO (09:06)
[2018-09-13] MEDS: Lisinopril 20 MG TAB 40 MG PO (09:06)
[2018-09-13] MEDS: amLODIPine 5 MG TAB 10 MG PO (09:06)
[2018-09-13] MEDS: Docusate Sodium 100 MG CAP PO (09:06)
[2018-09-13] MEDS: Bisacodyl 5 MG TABEC PO (09:07)
[2018-09-13] MEDS: Atorvastatin 10 MG TAB PO (09:07)
[2018-09-13] MEDS: Metoprolol 50 MG TAB PO ×2 (09:07→20:04)
[2018-09-13] MEDS: buPROPion-CR 100 MG TABCR PO ×2 (09:07→20:04)
[2018-09-13 09:19] VITALS: BP 145/98; PULSE 63; RESP 15; TEMP 36.1; O2SAT 100
--- NOTE | 2018-09-13 10:24 | PT.INTREAT ---
Date of service: 09/13/18 Time of Service: 10:24 PT Notes Inpatient Physical Therapy Treatment Note Date: 09/13/18 PRECAUTIONS: Fall SUBJECTIVE: Krystal is agreeable to participating in PT OBJECTIVE: PAIN: No c/o pain BED MOBILITY/TRANSFERS Supine-sit: I Sit-stand: SBA Stand-sit: SBA GAIT Assistive Device: FWW Weight bearing: Full Assist: CGA Distance: 75' x2 Deviation: Seated rest x3 minutes, cueing for L foot advancement, cueing for FWW mechanics. THEREX: Patient completed several LE strengthening exercises in a seated position, as per flow sheet. ASSESSMENT: Patient tolerated session with complaints of right upper extremity fatigue with FWW use during gait training. Patient continues to require visual and tactile cueing for left foot advancement as well as FWW mechanics with gait training. She also continues to require a seated rest due to fatigue with gait training. Patient would benefit from continued gait and transfer training as well as strengthening for improved ability to perform daily functional tasks as well as for improved gait duration. PLAN: Continue with PT's POC TREATMENT CODE/TIME: 25 minutes; TA/TP
--- NOTE | 2018-09-13 12:28 | PDOC.CMACT ---
- If Service Date Differs Date of service: 09/13/18 Time of Service: 12:28 Care Management Activity Note Krystal has been able to have her cell phone at the bedside, she enjoys television and ice cream vanilla to be exact. She wants to return home and will be returning back to [place] on Monday. She will be transferring to SNF for hearing impaired individuals. She is appreciative to returning home with her family. Krystal is able to communicate in writing and read lips, she also has the ASL line in the room. She has participated in pet therapy and offered activities at the bedside from the activity cart. P: Krystal will be discharged on Monday to SNF facility in [place]. She will be transferred by private vehicle at time of discharge. Family is aware of the discharge and DPOA Cliff her brother agrees to the discharge plan. Community partners and coordinating transportation and cost. Krystal will be going by private car and to request indwelling cath be placed for the transfer to protect her skin from incontinence and urination frequency and spasms. [facility] and spoke with admissions they are available for admission 7 days a week and 24 hours a day. They agree to accept patient Monday when she arrives. Provider will complete the discharge on Monday so that she can leave early Monday morning. She will be transported by private car at time of discharge.
--- NOTE | 2018-09-13 12:42 | CMACTNOTE_ITS ---
- If Service Date Differs Date of service: 09/13/18 Time of Service: 12:28 Care Management Activity Note Krystal has been able to have her cell phone at the bedside, she enjoys television and ice cream vanilla to be exact. She wants to return home and will be returning back to [place] on Monday. She will be transferring to SNF for hearing impaired individuals. She is appreciative to returning home with her family. Krystal is able to communicate in writing and read lips, she also has the ASL line in the room. She has participated in pet therapy and offered activities at the bedside from the activity cart. P: Krystal will be discharged on Monday to SNF facility in [place]. She will be transferred by private vehicle at time of discharge. Family is aware of the discharge and DPOA Cliff her brother agrees to the discharge plan. Community partners and coordinating transportation and cost. Krystal will be going by private car and to request indwelling cath be placed for the transfer to protect her skin from incontinence and urination frequency and spasms. [facility] and spoke with admissions they are available for admission 7 days a week and 24 hours a day. They agree to accept patient Monday when she arrives. Provider will complete the discharge on Monday so that she can leave early Monday morning. She will be transported by private car at time of discharge.
[2018-09-14] MEDS: Enoxaparin 40 MG/0.4 ML SYR SC (06:23)
[2018-09-14] MEDS: Levothyroxine 50 MCG TAB PO (06:23)
[2018-09-14 07:50] VITALS: BP 110/69; PULSE 55; RESP 16; TEMP 36.1; O2SAT 98
[2018-09-14] MEDS: Metoprolol 50 MG TAB PO ×2 (08:16→20:36)
[2018-09-14] MEDS: Mirabegron 50 MG TABCR PO (08:16)
[2018-09-14] MEDS: Omeprazole 20 MG CAPCR PO (08:16)
[2018-09-14] MEDS: Lisinopril 20 MG TAB 40 MG PO (08:17)
[2018-09-14] MEDS: buPROPion-CR 100 MG TABCR PO ×2 (08:17→20:36)
[2018-09-14] MEDS: amLODIPine 5 MG TAB 10 MG PO (08:17)
[2018-09-14] MEDS: Atorvastatin 10 MG TAB PO (08:17)
--- NOTE | 2018-09-14 08:58 | PT.INTREAT ---
Date of service: 09/14/18 Time of Service: 08:58 PT Notes Inpatient Physical Therapy Treatment Note Date: 09/14/18 PRECAUTIONS: Fall SUBJECTIVE: Krystal indicates that she is tired today, although is agreeable to PT. OBJECTIVE: PAIN: Patient c/o R arm pain with gait training BED MOBILITY/TRANSFERS Supine-sit: I Sit-stand: SBA Stand-sit: SBA GAIT Assistive Device: FWW Weight bearing: Full Assist: CGA Distance: 45' x2 Deviation: Slow pace, seated rest x1, cueing for L foot advancement, FWW mechanics TOILETING: Patient toileted with SBA for safety ASSESSMENT: Patient tolerated session with increased fatigue and c/o R arm pain with gait training with use of FWW for support. PLAN: As per primary PT TREATMENT CODE/TIME: 25 minutes; TAx2
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
--- NOTE | 2018-09-14 17:02 | PDOC.CMPRO ---
- If Service Date Differs Date of service: 09/14/18 Time of Service: 17:02 Care Management Progress Note S/O: CM contacted [facility] they are aware of patients disability and will make the accommodations. CM reviewed language barriers which is now documented by the airlines. Krystal will be discharged to nursing facility in [place] on Monday. Krystal's discharge to be prepared on Monday so that she can be transported to [facility] for a 12:00 arrival time.Flight [id number] will leave [place] at 2:50 and arrive in [place] at 5:05 pm. Krystal will be transported by bottom hoop driver and assistance to the [place] [facility]. The faculty research assistant will be able to take Krystal by wheelchair to automotive parts counter assistant obtain a visitor pass and then through security to her flight. She will then be assisted on the flight by flight radio officer. Her family will be able to go through security at the gate and pick her up to transport to the SNF. SHANE confirmed with brother that they will be able to meet her at the airport and arrange for her to be transported from the airport to SNF. SHANE contacted [facility] and notified that Krystal will be discharged Monday. Anticipated arrival at 6:00 pm. Krystal is agreeable to the plan and states she is relieved to return to [place] and accepts bed offer from facility. Krystal has requested a indwelling galvan be placed for the transport due to bladder spasms and incontinence. She also would like something to assist with her symptoms of anxiety prior to discharge. SHANE has sent her personal belongings to her brother in [place] which will be shipped on Monday through [facility] receiving. The following contact numbers should be used in case of changes in the plan: Cliff Kelly, (brother & POA), [place], [place] [phone]; Mariely Rodriguez, [address], [place] [phone] [facility] [phone] [place] [address] SHANE left voicemail for daughter Mariely with flight details.
--- NOTE | 2018-09-14 17:27 | CMPROGNOTE_ITS ---
- If Service Date Differs Date of service: 09/14/18 Time of Service: 17:02 Care Management Progress Note S/O: CM contacted [facility] they are aware of patients disability and will make the accommodations. CM reviewed language barriers which is now documented by the airlines. Krystal will be discharged to nursing facility in [place] on Monday. Krystal's discharge to be prepared on Monday so that she can be transported to [facility] for a 12:00 arrival time.Flight [id number] will leave [place] at 2:50 and arrive in [place] at 5:05 pm. Krystal will be transported by bulk driver and assistance to the [place] [facility]. The assistant customer service manager will be able to take Krystal by wheelchair to agent ticketing gate obtain a visitor pass and then through security to her flight. She will then be assisted on the flight by preflight inspector. Her family will be able to go through security at the gate and pick her up to transport to the SNF. SHANE confirmed with brother that they will be able to meet her at the airport and arrange for her to be transported from the airport to SNF. SHANE contacted [facility] and notified that Krystal will be discharged Monday. Anticipated arrival at 6:00 pm. Krystal is agreeable to the plan and states she is relieved to return to [place] and accepts bed offer from facility. Krystal has requested a indwelling galvan be placed for the transport due to bladder spasms and incontinence. She also would like something to assist with her symptoms of anxiety prior to discharge. SHANE has sent her personal belongings to her brother in [place] which will be shipped on Monday through [facility] receiving. The following contact numbers should be used in case of changes in the plan: Cliff Kelly, (brother & POA), [place], [place] [phone]; Mariely Rodriguez, [address], [place] [phone] [facility] [phone] [place] [address] SHANE left voicemail for daughter Mariely with flight details.
[2018-09-15] MEDS: Acetaminophen 500 MG TAB 1000 MG PO (00:18)
[2018-09-15 04:00] VITALS: BP 134/83; PULSE 55; RESP 17; TEMP 36.5; O2SAT 97
[2018-09-15] MEDS: Enoxaparin 40 MG/0.4 ML SYR SC (05:39)
[2018-09-15] MEDS: Levothyroxine 50 MCG TAB PO (05:39)
[2018-09-15] MEDS: Lisinopril 20 MG TAB 40 MG PO (07:36)
[2018-09-15] MEDS: Omeprazole 20 MG CAPCR PO (07:36)
[2018-09-15] MEDS: Metoprolol 50 MG TAB PO ×2 (07:36→19:24)
[2018-09-15] MEDS: buPROPion-CR 100 MG TABCR PO ×2 (07:36→19:24)
[2018-09-15] MEDS: amLODIPine 5 MG TAB 10 MG PO (07:37)
[2018-09-15] MEDS: Atorvastatin 10 MG TAB PO (07:37)
[2018-09-15] MEDS: Mirabegron 50 MG TABCR PO (07:37)
--- NOTE | 2018-09-15 11:19 | PDOC.CMPRO ---
- If Service Date Differs Date of service: 09/15/18 Time of Service: 11:19 Care Management Progress Note S/O: senior staff accountant requested CM contact Ana Maria Puga whom will be transporting Krystal to [place] tomorrow due to weather and timing. Ana Maria states that she will be leaving [facility] at 0700 to transport Krystal to the [place] [facility]. CM notified [employer], of this. CM requested that Dr. Francis complete DC paperwork today, and provided her with the SNF forms for completion. CM also spoke with GRETA Terrell, in regards to her piece of the SNF form which she states she will complete today. CM gave CJ, Pulling Unit Floorhand, the [employer], as well as Krystal's DPOA, which she will start a folder with to go with Krystal tomorrow. A: 58 y/o female admitted 08/30/18 to swingbed for generalized weakness. P: Krystal to [place] tomorrow 09/16 @ 0700. She will be transported to [facility] in [place] for a flight to [place] to the [facility]. CM to contact [facility] tomorrow in regards to verification of DC.
--- NOTE | 2018-09-15 11:22 | CMPROGNOTE_ITS ---
- If Service Date Differs Date of service: 09/15/18 Time of Service: 11:19 Care Management Progress Note S/O: direct support staff member requested CM contact Ana Maria Puga whom will be transporting Krystal to [place] tomorrow due to weather and timing. Ana Maria states that she will be leaving [facility] at 0700 to transport Krystal to the [place] [facility]. CM notified [employer], of this. CM requested that Dr. Francis complete DC paperwork today, and provided her with the SNF forms for completion. CM also spoke with GRETA Terrell, in regards to her piece of the SNF form which she states she will complete today. CM gave CJ, Oven Equipment Repairer, the [employer], as well as Krystal's DPOA, which she will start a folder with to go with Krystal tomorrow. A: 58 y/o female admitted 08/30/18 to swingbed for generalized weakness. P: Krystal to [place] tomorrow 09/16 @ 0700. She will be transported to [facility] in [place] for a flight to [place] to the [facility]. CM to contact [facility] tomorrow in regards to verification of DC.
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
[2018-09-16] MEDS: Acetaminophen 500 MG TAB 1000 MG PO (04:25)
[2018-09-16] MEDS: Levothyroxine 50 MCG TAB PO (06:01)
[2018-09-16] MEDS: Enoxaparin 40 MG/0.4 ML SYR SC (06:02)
[2018-09-16] MEDS: LORazepam 0.5 MG TAB PO (06:02)
--- NOTE | 2018-09-16 12:21 | PDOC.CMDIS ---
- If Service Date Differs Date of service: 09/16/18 Time of Service: 12:21 LACE Index Scoring Tool - Questions: Length of Stay (in days): 14 or more Acuity (Admit via E.D.?): No Comorbidities: Cerebrovascular Disease E.D. Visits: 2 - Answers: Total Score: 10 Risk of Readmission: High Risk Care Management Discharge Reason for Hospitalization: Swingbed for generalized weakness Discharge Plan: Krystal will DC at 0700 today. she will be transported [facility] in [place]. Krystal has a flight scheduled to [place] leaving at 1450. Ana Maria Barbozaett to transport to [place] this morning. Once in [place], Krystal's family will meet her at the airport and transport her to the SNF [facility] whom was notified by GRETA Muñoz CM, on Monday of DC date and time. Patient/Family Education Needs: Review DC instructions, any limitations, and discuss 'Ask Me three' Services Needed at Discharge: Care Home Facility ([facility]), Transportation ([place])
--- NOTE | 2018-09-16 12:25 | CMDISCH_ITS ---
- If Service Date Differs Date of service: 09/16/18 Time of Service: 12:21 LACE Index Scoring Tool - Questions: Length of Stay (in days): 14 or more Acuity (Admit via E.D.?): No Comorbidities: Cerebrovascular Disease E.D. Visits: 2 - Answers: Total Score: 10 Risk of Readmission: High Risk Care Management Discharge Reason for Hospitalization: Swingbed for generalized weakness Discharge Plan: Krystal will DC at 0700 today. she will be transported to [facility] in [place]. Krystal has a flight scheduled to [place] leaving at 1450. Ana Maria Barbozaett to transport to [place] this morning. Once in [place], Krystal's family will meet her at the airport and transport her to the SNF [facility] whom was notified by GRETA Muñoz CM, on Monday of DC date and time. Patient/Family Education Needs: Review DC instructions, any limitations, and discuss 'Ask Me three' Services Needed at Discharge: Snf Facility ([facility]), Transportation ([facility])
== END 2018-09-16 07:05 | disposition skilled nursing facility (03) | DRG 945 ==
PROVIDERS: Family Medicine; Internal Medicine; Nurse Practitioner; Admitting Provider Internal Medicine; PCP General Practice; Visit Provider Internal Medicine
DX: R53.1 Weakness (principal); T76.11XA Adult physical abuse, suspected, initial encounter; Z68.1 Body mass index [BMI] 19.9 or less, adult; I69.354 Hemiplegia and hemiparesis following cerebral infarction affecting left non-dominant side; Y07.01 Husband, perpetrator of maltreatment and neglect; Z99.3 Dependence on wheelchair; I69.322 Dysarthria following cerebral infarction; H91.93 Unspecified hearing loss, bilateral; F32.9 Major depressive disorder, single episode, unspecified; F01.50 Vascular dementia, unspecified severity, without behavioral disturbance, psychotic disturbance, mood disturbance, and anxiety; I69.320 Aphasia following cerebral infarction; R32 Unspecified urinary incontinence; S09.90XA Unspecified injury of head, initial encounter; S09.93XA Unspecified injury of face, initial encounter; W06.XXXA Fall from bed, initial encounter; Y92.230 Patient room in hospital as the place of occurrence of the external cause; Z60.8 Other problems related to social environment
CPT/HCPCS: 36415; 80048; 80307; 97110; 97163; 97530; 99305; 99308; 99316; 99355; J1650; 70450; 83735; 85049; 99354